=== PATIENT | female | born 1960 | race Caucasian/White ===

== ENCOUNTER → 2018-03-14 15:51 | Outpatient (CLI) | payer OTHER, SELFPAY ==
--- NOTE | 2018-03-14 15:56 | RAD_ITS ---
STUDY: X-RAY - LEFT HAND REASON FOR EXAM: Female, 57 years old. Pain base of the thumb TECHNIQUE: 3 view(s) of the hand. COMPARISON: None. FINDINGS: Normal radiocarpal articulation. Normal distal radioulnar joint. Normal visualized carpal bones. 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 Normal second through fifth carpometacarpal joints. Normal metacarpi. Normal metacarpophalangeal joint of the thumb. Normal interphalangeal joint of the thumb. Normal proximal and distal phalanges of the thumb. Normal metacarpophalangeal joints of the second through fifth fingers. Normal proximal and distal interphalangeal joints of the second through fifth fingers. Normal phalanges of the second through fifth fingers. The soft tissue structures are unremarkable. RAD/Hand Min 3 Views IMPRESSION: Degenerative change base of the thumb. No fracture or dislocation. Electronically Signed: Frank Muir DO at 22:28 EDT , Service support ,
== END ==
PROVIDERS: Family Provider Internal Medicine; PCP Internal Medicine; Visit Provider Nurse Practitioner Gerontology
DX: M79.645 Pain in left finger(s) (principal)
CPT/HCPCS: 73130

== ENCOUNTER 2018-07-07 15:29 | Emergency (ER) | payer OTHER, SELFPAY ==
[2018-07-07 15:29] VITALS: BP 159/85; PULSE 82; RESP 16; TEMP 36.4; O2SAT 100; BMI 28.3
--- NOTE | 2018-07-07 16:11 | EKG12_ITS ---
Test Reason : SYNCOPE Blood Pressure : / mmHG Vent. Rate : 080 BPM Atrial Rate : 080 BPM P-R Int : 176 ms QRS Dur : 086 ms QT Int : 386 ms P-R-T Axes : 047 -13 008 degrees QTc Int : 445 ms Poor data quality, interpretation may be adversely affected Sinus rhythm with Fusion complexes Moderate voltage criteria for LVH, may be normal variant Borderline ECG Confirmed by SANKET LYNNE ([id number]), editor in chief CHAD BEYER ([id number] on 07/11/2018 2:23:58 PM Referred By: DONG Confirmed By:SANKET LYNNE
--- NOTE | 2018-07-07 16:13 | ED.VISSUMM ---
- ER Visit Summary Date of Service: 07/07/18 Chief Complaint: I feel like I am going to pass out History of Present Illness: The patient is a 57 F past medical history of vsn-eqnnncn-aoztgbtid diabetes, hypertension and mitral valve prolapse. Patient states yesterday she had 4 episodes and about 6 episodes a day where she has sudden onset brief episodes that she feels like she is going to pass out. She states only last 5 or 6 seconds. She denies associated symptoms. No palpitations. No fast or slow heartbeats. No irregular heartbeats. No chest pain. No headache. No shortness of breath. No abdominal pain. No melena. No nausea, vomiting, diarrhea or fever. Does not believe she has had episodes like this before. States she has been eating and drinking. Physical Examination: Well-appearing middle-age female. Vital signs are stable and afebrile. Pulse ox 100% on room air no signs of hypoxia. H EENT exam unremarkable. Neck nontender. Lungs clear to auscultation bilaterally. Heart regular rate and rhythm I do not appreciate any murmur. Abdomen soft and nontender. Normal bowel sounds no peritoneal signs. No pulsatile mass. She is moving all 4 extremities. They are neurovascularly intact. Calves are nontender without edema or cords. Neurologically she is awake and alert without focal motor deficits. NIH is 0. Fingertip to nose and heel to londono within normal limits. Normal speech. No facial droop. Test Results: Orthostatic vital signs were negative. Chest x-ray showed normal cardiac silhouette and mediastinum read both by myself the radiologist. EKG is a sinus rhythm with no acute abnormality and unchanged from prior EKG from 2005. CBC normal. Chemistries unremarkable with a normal gap and creatinine. And troponin was normal. Emergency Department Course and Treatment: Patient with near syncope. With a normal exam. Well at 1904. He will be discharged home. Treatment Plan: Follow-up with a primary care physician or return to the ER if worse. Disposition: Discharge Impression: Near syncope of uncertain etiology This note was generated with [employer] dictation software. It may contain incorrect words, spelling, and punctuation that were not noted in review of the chart prior to signing ED Disposition - Plan for ED Patient: Chief Complaint: Syncope Referrals: Jessica Carrington DO [Primary Care Provider] -
[2018-07-07 16:37] VITALS: O2SAT 98
[2018-07-07] MEDS: 0.9% Normal Saline 1,000 ML 999 ML IV (16:41)
[2018-07-07 16:49] LABS: Absolute Lymphocyte Count 1.25 X10^3/ul (0.83-4.51); Absolute Neutrophil Count 6.9 X10^3/uL (2.0-7.7); Basophil# 0.02 X10^3/uL; Basophil% 0.2 % (0-1); Eosinophil# 0.19 X10^3/uL; Eosinophils% 2.1 % (0-5); Hematocrit 39.8 % (37-47); Hemoglobin 12.8 g/dl (12.0-15.0); Lymphocyte # 1.25 X10^3/ul (4.0); Mean Corp Hgb Conc 32.2 g/gl (32-36); Mean Corpuscular Hgb 25.9 pg (27.0-32.0); Mean Corpuscular Volume 80.6 fL (81-99); Mean Platelet Vol. 10.4 fl (6.2-12.0); Monocyte# 0.57 X10^3/uL; Monocyte% 6.4 % (0-10); Neutrophil # 6.86 X10^3/uL (2.7-7.7); Neutrophil % 77.1 % (47-70); Platelet Count 277 K/mm3 (150-450); RBC Distribution Width CV 14.9 % (11.6-14.6); RBC Distribution Width SD 43.3 fl (35.1-43.9); Red Blood Count 4.94 M/mm3 (4.2-5.4); White Blood Count 8.9 K/mm3 (4.4-11.0)
[2018-07-07 16:50] LABS: POSITIVE COUNT NO; POSITIVE DIFFERENTIAL NO; POSITIVE MORPHOLOGY NO
[2018-07-07 17:02] LABS: Anion Gap 10 (5-15); BUN 20 mg/dL (7-18); BUN/Creat Ratio 21.1 RATIO (10-20); Calcium,Total 9.3 mg/dL (8.5-10.1); Chloride 98 mmol/L (98-107); Creatinine, Serum 0.95 mg/dL (0.55-1.02); EST Glomerular Filtration Rate 64 mL/min (>60); Est Glom Filt Rate - Afr Amer 78 mL/min (>60); Estimated Creatinine Clearance 55.74 ml/min; Glucose 228 mg/dL (74-106); Potassium 3.7 mmol/L (3.5-5.1); Sodium Level 134 mmol/L (136-145)
[2018-07-07 18:03] VITALS: PULSE 86; RESP 17; O2SAT 98
[2018-07-07 18:22] VITALS: BP 144/74; BP 154/73; BP 162/83; PULSE 83; PULSE 85; PULSE 91
--- NOTE | 2018-07-07 19:07 | ED.DEP ---
ED Disposition - Plan for ED Patient: Disposition: Home or Assisted Living Chief Complaint: Syncope Instructions: ED Near Syncope Unkn Referrals: Jessica Carrington DO [Primary Care Provider] - As soon as possible Additional Instructions: All your tests were unremarkable today. Follow-up your primary care physician for further evaluation.
[2018-07-07 19:30] VITALS: BP 172/73; PULSE 88; RESP 18
== END 2018-07-07 19:31 | disposition home or self-care (01) ==
PROVIDERS: Emergency Provider Emergency Medicine; Family Provider Internal Medicine; PCP Internal Medicine
DX: R55 Syncope and collapse (principal); E11.9 Type 2 diabetes mellitus without complications; I34.1 Nonrheumatic mitral (valve) prolapse; I10 Essential (primary) hypertension; Z79.84 Long term (current) use of oral hypoglycemic drugs; Z79.899 Other long term (current) drug therapy
CPT/HCPCS: 71045; 80048; 84484; 85025; 93005; 96360; 99285; J7030; A4216

== ENCOUNTER → 2019-01-01 16:53 | Outpatient (CLI) | payer OTHER, SELFPAY ==
[2019-01-01 17:56] LABS: Hemoglobin A1c 9.4 % (4.2-6.3)
[2019-01-01 18:21] LABS: AST(SGOT) 18 U/L (15-37); Alanine Aminotransfer ALT/SGPT 26 U/L (13-56); Albumin, Serum 3.5 g/dL (3.2-5.0); Alkaline Phosphatase 111 U/L (45-117); Anion Gap 11 (5-15); BUN 24 mg/dL (7-18); BUN/Creat Ratio 21.1 RATIO (10-20); Calcium,Total 8.9 mg/dL (8.5-10.1); Chloride 94 mmol/L (98-107); Creatinine, Serum 1.14 mg/dL (0.55-1.02); EST Glomerular Filtration Rate 52 mL/min (>60); Est Glom Filt Rate - Afr Amer 63 mL/min (>60); Globulin 3.6 g/dL (2.2-4.2); Glucose 258 mg/dL (74-106); Iron 44 ug/dL (50-170); Iron Binding Capacity,Total 372 ug/dL (250-450); Magnesium 1.4 mg/dL (1.6-2.6); PERCENT IRON SATURATION 11.8 % (15.0-55.0); Potassium 3.4 mmol/L (3.5-5.1); Protein, Total 7.1 g/dL (6.4-8.2); Sodium Level 131 mmol/L (136-145)
== END ==
PROVIDERS: Family Provider Internal Medicine; PCP Internal Medicine; Referring Provider Internal Medicine; Visit Provider Internal Medicine
DX: E11.9 Type 2 diabetes mellitus without complications (principal); D64.9 Anemia, unspecified; R25.2 Cramp and spasm; D53.1 Other megaloblastic anemias, not elsewhere classified; E55.9 Vitamin D deficiency, unspecified
CPT/HCPCS: 36415; 80053; 83036; 83540; 83550; 83735; 84443

== ENCOUNTER 2019-01-23 15:36 | Emergency (ER) | payer OTHER, SELFPAY ==
[2019-01-23 15:38] VITALS: BP 166/100; PULSE 95; RESP 16; TEMP 36.1; O2SAT 99; BMI 29.0
--- NOTE | 2019-01-23 15:55 | ED.VISSUMM ---
- ER Visit Summary Date of Service: 01/23/19 Chief Complaint: Diarrhea and I feel dehydrated History of Present Illness: The patient is a 58 F the last 3 or 4 weeks has had intermittent episodes of diarrhea which have tested her stool and she states that she does not have C. difficile. She is been admitted to [facility] in [place] x2 the last being about 10 days ago. She is receiving IV fluids and has had electrolyte abnormalities. States she is having similar symptoms the last several days. Denies any fever. Mild chills. No melena. She was recently about 3-4 weeks ago on antibiotics for UTI. She drinks city water. Physical Examination: Middle-aged female no acute distress. Vital signs are stable. She is afebrile. She does not look septic or toxic. HEENT exam mild dry mucous memories. Neck nontender no lymphadenopathy. Lungs clear to auscultation bilaterally. Heart regular rate and rhythm no murmur. Abdomen soft nontender. Normal bowel sounds no peritoneal signs. Extremities moving all 4. Calves nontender without edema or cords. Neurologically she is awake alert with no focal motor deficits. Skin unremarkable. Test Results: CBC unremarkable hemoglobin mildly anemic at 11.6. Previously 12 electrolytes unremarkable potassium 3.6 magnesium 1.6 patient will be specifically check her magnesium. BUN 13 creatinine 0.9 normal gap. Emergency Department Course and Treatment: Patient treated with IV fluids times 1 L. On repeat exam patient doing well with 1827. She is feeling better after liter normal saline. She and I went over her labs with her. She meets no criteria to warrant admission. She is comfortable being discharged home. Treatment Plan: She will follow-up with her primary care physician. She probably needs referral either to a GI specialist for her diarrhea and/or a local general surgeon for possible colonoscopy. Disposition: discharge Impression: Acute diarrhea This note was generated with [employer] dictation software. It may contain incorrect words, spelling, and punctuation that were not noted in review of the chart prior to signing ED Disposition - Plan for ED Patient: Referrals: Jessica Carrington DO [Primary Care Provider] -
--- NOTE | 2019-01-23 15:58 | ED.DCSUM_ITS ---
- ER Visit Summary Date of Service: 01/23/19 Chief Complaint: Diarrhea and I feel dehydrated History of Present Illness: The patient is a 58 F the last 3 or 4 weeks has had intermittent episodes of diarrhea which have tested her stool and she states that she does not have C. difficile. She is been admitted to [facility] in [place] x2 the last being about 10 days ago. She is receiving IV fluids and has had electrolyte abnormalities. States she is having similar symptoms the last several days. Denies any fever. Mild chills. No melena. She was recently about 3-4 weeks ago on antibiotics for UTI. She drinks city water. Physical Examination: Middle-aged female no acute distress. Vital signs are stable. She is afebrile. She does not look septic or toxic. HEENT exam mild dry mucous memories. Neck nontender no lymphadenopathy. Lungs clear to auscultation bilaterally. Heart regular rate and rhythm no murmur. Abdomen soft nontender. Normal bowel sounds no peritoneal signs. Extremities moving all 4. Calves nontender without edema or cords. Neurologically she is awake alert with no focal motor deficits. Skin unremarkable. Test Results: CBC unremarkable hemoglobin mildly anemic at 11.6. Previously 12 electrolytes unremarkable potassium 3.6 magnesium 1.6 patient will be specifically check her magnesium. BUN 13 creatinine 0.9 normal gap. Emergency Department Course and Treatment: Patient treated with IV fluids times 1 L. On repeat exam patient doing well with 1827. She is feeling better after liter normal saline. She and I went over her labs with her. She meets no criteria to warrant admission. She is comfortable being discharged home. Treatment Plan: She will follow-up with her primary care physician. She probably needs referral either to a GI specialist for her diarrhea and/or a local general surgeon for possible colonoscopy. Disposition: discharge Impression: Acute diarrhea This note was generated with [employer] dictation software. It may contain incorrect words, spelling, and punctuation that were not noted in review of the chart prior to signing ED Disposition - Plan for ED Patient: Referrals: Jessica Carrington DO [Primary Care Provider] -
[2019-01-23] MEDS: 0.9% Normal Saline 1,000 ML 1000 ML IV (16:04)
[2019-01-23 16:20] LABS: Absolute Lymphocyte Count 1.37 X10^3/ul (0.83-4.51); Absolute Neutrophil Count 2.8 X10^3/uL (2.0-7.7); Basophil# 0.01 X10^3/uL; Basophil% 0.2 % (0-1); Eosinophil# 0.07 X10^3/uL; Eosinophils% 1.5 % (0-5); Hematocrit 37.1 % (37-47); Hemoglobin 11.6 g/dl (12.0-15.0); Lymphocyte # 1.37 X10^3/ul (4.0); Lymphocyte % 28.9 % (19-41); Mean Corp Hgb Conc 31.3 g/gl (32-36); Mean Corpuscular Hgb 25.7 pg (27.0-32.0); Mean Corpuscular Volume 82.1 fL (81-99); Mean Platelet Vol. 9.1 fl (6.2-12.0); Monocyte# 0.45 X10^3/uL; Monocyte% 9.5 % (0-10); Neutrophil # 2.84 X10^3/uL (2.7-7.7); Neutrophil % 59.9 % (47-70); Platelet Count 263 K/mm3 (150-450); RBC Distribution Width CV 14.7 % (11.6-14.6); RBC Distribution Width SD 43.9 fl (35.1-43.9); Red Blood Count 4.52 M/mm3 (4.2-5.4); White Blood Count 4.7 K/mm3 (4.4-11.0)
[2019-01-23 16:21] LABS: POSITIVE COUNT NO; POSITIVE DIFFERENTIAL NO; POSITIVE MORPHOLOGY NO
[2019-01-23 16:29] LABS: Anion Gap 6 (5-15); BUN 13 mg/dL (7-18); BUN/Creat Ratio 14.5 RATIO (10-20); Chloride 99 mmol/L (98-107); EST Glomerular Filtration Rate 68 mL/min (>60); Est Glom Filt Rate - Afr Amer 83 mL/min (>60); Estimated Creatinine Clearance 58.12 ml/min; Glucose 157 mg/dL (74-106); Magnesium 1.6 mg/dL (1.6-2.6); Potassium 3.6 mmol/L (3.5-5.1); Sodium Level 134 mmol/L (136-145)
--- NOTE | 2019-01-23 18:31 | ED.DEP ---
ED Disposition - Plan for ED Patient: Disposition: Home or Assisted Living Referrals: Jessica Carrington, [Primary Care Provider] - As soon as possible Additional Instructions: Plenty of fluids and rest. Imodium for your diarrhea. Next Follow-up your primary care physician you need referral either to a local GI doctor or local surgeon for further evaluation of your diarrhea and/or possible colonoscopy.
== END 2019-01-23 18:39 | disposition home or self-care (01) ==
PROVIDERS: Emergency Provider Emergency Medicine; Family Provider Internal Medicine; PCP Internal Medicine
DX: R19.7 Diarrhea, unspecified (principal); E86.0 Dehydration; I10 Essential (primary) hypertension; E11.9 Type 2 diabetes mellitus without complications; Z79.84 Long term (current) use of oral hypoglycemic drugs; Z79.899 Other long term (current) drug therapy
CPT/HCPCS: 80048; 83735; 85025; 96360; 96361; 99283; J7030; A4216

== ENCOUNTER → 2019-05-16 | Outpatient (CLI) | payer OTHER, SELFPAY ==
[2019-05-16 16:01] VITALS: BMI 28.3
--- NOTE | 2019-05-16 16:12 | RAD_ITS ---
STUDY: X-RAY CHEST REASON FOR EXAM: Female, 58 years old. Cough TECHNIQUE: Frontal and lateral views of the chest COMPARISON: 07/07/2018 FINDINGS: The lungs are clear. There are no pleural effusions. There is no pneumothorax. The heart is normal in size. The visualized osseous structures are within normal limits. RAD/Chest PA and Lateral IMPRESSION: No acute thoracic pathology. Electronically Signed: Juan Ruth, at 16:22 EDT Tel , Service support ,
== END | disposition home or self-care (01) ==
LOC: MTRAD 16:11
PROVIDERS: Family Provider Internal Medicine; PCP Internal Medicine; Referring Provider Physician Assistant; Visit Provider Physician Assistant
DX: R05 Cough (principal)
CPT/HCPCS: 71046

== ENCOUNTER 2019-08-29 17:44 | Emergency (ER) | payer OTHER, SELFPAY ==
[2019-08-29 17:44] VITALS: BMI 28.3
[2019-08-29 17:45] VITALS: BP 152/84; PULSE 86; RESP 15; TEMP 36.4; O2SAT 98; BMI 27.4
--- NOTE | 2019-08-29 19:37 | ED.RN ---
PATIENT LEFT WITHOUT BEING SEEN
== END 2019-08-29 19:37 | disposition left against medical advice (07) ==
LOC: ED 19:35
PROVIDERS: Emergency Provider Emergency Medicine; Family Provider Internal Medicine; PCP Internal Medicine
DX: Z53.21 Procedure and treatment not carried out due to patient leaving prior to being seen by health care provider (principal)

== ENCOUNTER → 2020-10-20 | Outpatient (CLI) | payer OTHER, SELFPAY ==
[2020-10-20 15:32] LABS: Absolute Lymphocyte Count 1.61 X10^3/uL (0.83-4.51); Absolute Neutrophil Count 3.8 X10^3/uL (2.0-7.7); Basophil# 0.02 X10^3/uL; Basophil% 0.3 % (0-1); Eosinophil# 0.09 X10^3/uL; Eosinophils% 1.5 % (0-5); Hematocrit 39.6 % (37-47); Hemoglobin 12.1 g/dL (12.0-15.0); Lymphocyte # 1.61 X10^3/ul (4.0); Lymphocyte % 26.3 % (19-41); Mean Corp Hgb Conc 30.6 g/dL (32-36); Mean Corpuscular Volume 78.6 fL (81-99); Mean Platelet Vol. 10.4 fl (6.2-12.0); Monocyte# 0.59 X10^3/uL; Monocyte% 9.6 % (0-10); NRBC Flagged by Analyzer 0 % (0-5); Neutrophil # 3.79 X10^3/uL (2.7-7.7); Neutrophil % 61.8 % (47-70); Platelet Count 329 K/mm3 (150-450); RBC Distribution Width CV 14.7 % (11.6-14.6); RBC Distribution Width SD 41.7 fl (35.1-43.9); Red Blood Count 5.04 M/mm3 (4.2-5.4); White Blood Count 6.1 K/mm3 (4.4-11.0)
[2020-10-20 15:59] LABS: Albumin, Serum 3.6 g/dL (3.2-5.0); BUN 16 mg/dL (7-18); BUN/Creat Ratio 16.3 RATIO (10-20); Calcium,Total 9.4 mg/dL (8.5-10.1); Chloride 96 mmol/L (98-107); Creatinine, Serum 0.98 mg/dL (0.55-1.02); EST Glomerular Filtration Rate 61 mL/min (>60); Est Glom Filt Rate - Afr Amer 74 mL/min (>60); Glucose 269 mg/dL (74-106); Magnesium 1.7 mg/dL (1.6-2.6); Phosphorus 3.3 mg/dL (2.5-4.9); Potassium 3.9 mmol/L (3.5-5.1); Sodium Level 133 mmol/L (136-145)
== END | disposition home or self-care (01) ==
LOC: LABSPEC 15:14
PROVIDERS: PCP Internal Medicine; Referring Provider Nurse Practitioner; Visit Provider Nurse Practitioner
DX: R19.7 Diarrhea, unspecified (principal)
CPT/HCPCS: 80069; 83735; 85025

== ENCOUNTER → 2020-12-26 12:28 | Outpatient (CLI) | payer OTHER, SELFPAY ==
--- NOTE | 2020-12-26 12:31 | RAD_ITS ---
STUDY: X-RAY - UNILATERAL RIBS ( RIGHT ) WITH CHEST REASON FOR EXAM: Female, 60 years old. Right anterior rib pain, leaned over a seat in the fall, still having pain under right breast TECHNIQUE - RIBS: 3 view(s) of the ribs. TECHNIQUE - CHEST: Single PA view of the chest. COMPARISON: Comparison is made with prior chest radiograph dated 05/16/2008. FINDINGS - RIBS: Normal visualized ribs without a demonstrated fracture. FINDINGS - CHEST: The lungs are clear and expanded. Scattered calcified granulomas. There is no demonstrated pleural abnormality. Normal size heart. Normal mediastinum and aron. Normal visualized pulmonary arteries. Normal visualized aortic arch and descending thoracic aorta. There are diffuse degenerative changes of the visualized thoracic spine. Normal visualized ribs, clavicles, and shoulders. Status post cholecystectomy. RAD/Ribs Uni Min 3V w/PA Chest IMPRESSION: RIBS: Normal x-ray examination of the ribs. CHEST: Normal x-ray examination of the chest. Electronically Signed: Robson Holland MD at 15:03 EST , Service support ,
== END ==
PROVIDERS: PCP Internal Medicine; Referring Provider Nurse Practitioner; Visit Provider Nurse Practitioner
DX: R07.81 Pleurodynia (principal)
CPT/HCPCS: 71101

== ENCOUNTER → 2021-06-20 | Outpatient (CLI) | payer OTHER, SELFPAY ==
[2021-06-20 12:55] LABS: Mucous, Urine 0 SEEN /hpf (<or=2+); Red Blood Cells-Urine 0 SEEN /hpf (0-5)
[2021-06-20 13:01] LABS: Color, Urine Yellow (Yellow); Glucose, Dipstick 1000 mg/dl (Normal); Ketone-Dipstick Negative (Negative); Leukocyte Esterase-Dipstick 500 /ul (Negative); Nitrite-Dipstick Positive (Negative); Occult Blood-Urine 50 /ul (Negative); Protein-Dipstick 30 mg/dl (Negative); Specific Gravity, Urine 1.015 (1.002-1.030); Urine Clarity Clear (Clear); Urine Urobilinogen 4 mg/dl (Normal)
[2021-06-20 13:05] LABS: Urine Bilirubin Dipstick 3 mg/dL (Negative)
[2021-06-20 13:08] LABS: Bacteria 1+ /hpf (None Seen); Squamous Epithelial Cells - UA 0-5 SEEN /hpf (5-10); White Blood Cells >100 SEEN /hpf (0-5)
== END | disposition home or self-care (01) ==
PROVIDERS: PCP Internal Medicine; Referring Provider Nurse Practitioner Family; Visit Provider Nurse Practitioner Family
DX: N39.0 Urinary tract infection, site not specified (principal)
CPT/HCPCS: 81001; 87077; 87086; 87088; 87186

== ENCOUNTER → 2022-07-20 | Outpatient (CLI) | payer OTHER, SELFPAY | END | disposition home or self-care (01) | PROVIDERS: PCP Internal Medicine; Referring Provider Internal Medicine; Visit Provider Internal Medicine | DX: R00.0 Tachycardia, unspecified (principal) | CPT/HCPCS: 93225; 93226 ==

== ENCOUNTER → 2023-02-21 | Outpatient (CLI) | payer OTHER, SELFPAY ==
[2023-02-21 15:35] LABS: Mucous, Urine 0 SEEN /hpf (<or=2+)
[2023-02-21 16:01] LABS: Absolute Neutrophil Count 5.4 X10^3/uL (2.0-7.7); Basophil# 0.02 X10^3/uL; Basophil% 0.3 % (0-1); Eosinophil# 0.19 X10^3/uL; Eosinophils% 2.4 % (0-5); Hematocrit 39.9 % (37-47); Hemoglobin 12.8 g/dL (12.0-15.0); Lymphocyte % 21.6 % (19-41); Mean Corp Hgb Conc 32.1 g/dL (32-36); Mean Corpuscular Hgb 25.1 pg (27.0-32.0); Mean Corpuscular Volume 78.4 fL (81-99); Mean Platelet Vol. 9.9 fl (6.2-12.0); Monocyte% 7.6 % (0-10); NRBC Flagged by Analyzer 0 % (0-5); Neutrophil # 5.35 X10^3/uL (2.7-7.7); Neutrophil % 67.8 % (47-70); Platelet Count 387 K/mm3 (150-450); RBC Distribution Width CV 14.3 % (11.6-14.6); RBC Distribution Width SD 40.2 fl (35.1-43.9); Red Blood Count 5.09 M/mm3 (4.2-5.4); White Blood Count 7.9 K/mm3 (4.4-11.0)
[2023-02-21 16:02] LABS: Color, Urine Yellow (Yellow); Glucose, Dipstick 1000 mg/dl (Normal); Ketone-Dipstick Negative (Negative); Leukocyte Esterase-Dipstick 500 /ul (Negative); Nitrite-Dipstick Negative (Negative); Occult Blood-Urine 25 /ul (Negative); Protein-Dipstick 15 mg/dl (Negative); Urine Bilirubin Dipstick Negative (Negative); Urine Clarity Cloudy (Clear); Urine Urobilinogen Normal (Normal)
[2023-02-21 16:22] LABS: Microalbumin,Random Urine 74.6 mg/L (NO RANGE EST.); Microalbumin:Creatinine Ratio 222.7 mg/g CRE (<30 mg/g CRE)
[2023-02-21 17:20] LABS: White Blood Cells >100 SEEN /hpf (0-5)
[2023-02-21 17:21] LABS: Amorphous Sediment 1+ URATE; Bacteria 1+ /hpf (None Seen); Red Blood Cells-Urine 0-5 SEEN /hpf (0-5); Squamous Epithelial Cells - UA 0-5 SEEN /hpf (5-10)
[2023-02-21 18:11] LABS: ALB/GLOB Ratio 0.9 RATIO (0.9-2.4); AST(SGOT) 18 U/L (15-37); Alanine Aminotransfer ALT/SGPT 33 U/L (13-56); Albumin, Serum 3.5 g/dL (3.2-5.0); Alkaline Phosphatase 128 U/L (45-117); Anion Gap 7 (5-15); BUN 17 mg/dL (7-18); Calcium,Total 9.2 mg/dL (8.5-10.1); Chloride 92 mmol/L (98-107); Cholesterol 165 mg/dL (200); Creatinine, Serum 1.06 mg/dL (0.55-1.02); EST Glomerular Filtration Rate 56 mL/min (>60); Est Glom Filt Rate - Afr Amer 67 mL/min (>60); Globulin 3.9 g/dL (2.2-4.2); Glucose 291 mg/dL (74-106); High Density Lipoprotein 41 mg/dL; Potassium 3.5 mmol/L (3.5-5.1); Protein, Total 7.4 g/dL (6.4-8.2); Sodium Level 127 mmol/L (136-145); Triglycerides 407 mg/dL
== END | disposition home or self-care (01) ==
LOC: LAB 15:27
PROVIDERS: PCP Internal Medicine; Visit Provider Internal Medicine
DX: E11.9 Type 2 diabetes mellitus without complications (principal); E78.5 Hyperlipidemia, unspecified
CPT/HCPCS: 36415; 80053; 80061; 81001; 82043; 82570; 85025; 87077; 87086; 87088; 87186

== ENCOUNTER → 2023-05-16 | Outpatient (CLI) | payer OTHER, SELFPAY ==
[2023-05-16 15:58] LABS: Mucous, Urine 0 SEEN /hpf (<or=2+)
[2023-05-16 16:11] LABS: Glucose, Dipstick 1000 mg/dl (Normal); Ketone-Dipstick 5 mg/dl (Negative); Leukocyte Esterase-Dipstick 500 /ul (Negative); Nitrite-Dipstick Negative (Negative); Occult Blood-Urine 50 /ul (Negative); Protein-Dipstick 30 mg/dl (Negative); Urine Bilirubin Dipstick Negative (Negative); Urine Urobilinogen Normal (Normal)
[2023-05-16 16:14] LABS: Color, Urine Yellow (Yellow); Urine Clarity Sl Cldy (Clear)
[2023-05-16 16:44] LABS: Red Blood Cells-Urine 5-10 SEEN /hpf (0-5); Squamous Epithelial Cells - UA 5-10 SEEN /hpf (5-10); White Blood Cells 50-100 SEEN /hpf (0-5)
[2023-05-16 16:45] LABS: Bacteria RARE /hpf (None Seen)
== END | disposition home or self-care (01) ==
LOC: LABSPEC 14:50
PROVIDERS: PCP Internal Medicine; Referring Provider Physician Assistant Surgical; Visit Provider Physician Assistant Surgical
DX: N39.0 Urinary tract infection, site not specified (principal)
CPT/HCPCS: 81001; 87077; 87086; 87088; 87186

== ENCOUNTER 2023-06-27 12:13 | Inpatient (IN) | payer OTHER, SELFPAY ==
[2023-06-27 12:15] VITALS: BP 131/71; PULSE 89; RESP 18; TEMP 36.6; O2SAT 100
[2023-06-27 12:28] VITALS: BMI 26.4
--- NOTE | 2023-06-27 13:51 | EKG12_ITS ---
Test Reason : GENERAL Blood Pressure : / mmHG Vent. Rate : 075 BPM Atrial Rate : 075 BPM P-R Int : 176 ms QRS Dur : 086 ms QT Int : 382 ms P-R-T Axes : 050 -29 021 degrees QTc Int : 426 ms Normal sinus rhythm Minimal voltage criteria for LVH, may be normal variant ( R in aVL ) Borderline ECG Confirmed by JUDI GOMEZ ([id number]), marketing editor VLADIMIR TOBAR ([id number]) on 07/08/2023 2:08:06 PM Referred By: Confirmed By:JUDI GOMEZ
[2023-06-27] MEDS: Morphine 4 MG/ML Syringe IV (14:08)
[2023-06-27] MEDS: Ondansetron 4 MG/2 ML Vial IV (14:09)
[2023-06-27 14:18] LABS: Absolute Lymphocyte Count 0.77 X10^3/uL (0.83-4.51); Absolute Neutrophil Count 10.5 X10^3/uL (2.0-7.7); Basophil# 0.01 X10^3/uL; Basophil% 0.1 % (0-1); Hematocrit 43.7 % (37-47); Hemoglobin 13.8 g/dL (12.0-15.0); Lymphocyte # 0.77 X10^3/ul (0.83-4.51); Lymphocyte % 6.4 % (19-41); Mean Corp Hgb Conc 31.6 g/dL (32-36); Mean Corpuscular Hgb 24.7 pg (27.0-32.0); Mean Corpuscular Volume 78.3 fL (81-99); Mean Platelet Vol. 10.5 fl (6.2-12.0); Monocyte# 0.68 X10^3/uL; Monocyte% 5.6 % (0-10); NRBC Flagged by Analyzer 0 % (0-5); Neutrophil # 10.53 X10^3/uL (2.7-7.7); Neutrophil % 87.5 % (47-70); Platelet Count 439 K/mm3 (150-450); RBC Distribution Width CV 14.5 % (11.6-14.6); RBC Distribution Width SD 40.9 fl (35.1-43.9); Red Blood Count 5.58 M/mm3 (4.2-5.4)
--- NOTE | 2023-06-27 14:20 | RAD_ITS ---
STUDY: X-RAY CHEST REASON FOR EXAM: Female, 62 years old. Shoulder pain TECHNIQUE: PA and lateral views of the chest. COMPARISON: Comparison is made with prior study dated November 25, 2021. FINDINGS: EKG electrodes are seen. The lungs are clear and expanded. There is no demonstrated pleural abnormality. Normal size heart. Normal mediastinum and aron. Normal visualized pulmonary arteries. Normal visualized aortic arch and descending thoracic aorta. There are diffuse degenerative changes of the visualized thoracic spine. Normal visualized ribs, clavicles, and shoulders. Surgical clips are seen in the right upper quadrant. RAD/Chest PA and Lateral IMPRESSION: No acute abnormality is seen. Electronically Signed: Robson Holland MD at 14:56 EDT ,
--- NOTE | 2023-06-27 14:30 | EX.ED.UPPERE ---
HPI History of Present Illness HPI Narrative: Patient presents with left shoulder and arm pain that has been getting worse over the past week. Patient states it came on gradually. Patient states it has been constant. Patient states that sharp and stabbing. Patient states it is worse when she gets up and better when she lays flat. Patient states the pain radiates down her arm and has some tingling into her fingers. Patient denies any weakness. Patient does admit to some shortness of breath. Patient states she also has pain under her left scapula. Patient denies any trauma or injury. Patient denies any nausea or vomiting. Patient denies any sweats. Chief Complaint: Upper Extremity Injury Informant: patient Onset/Context/Timing Onset: Weeks (1) Context: Gradual Onset Timing: Continuous Quality of Pain: Sharp and Stabbing Location: Left shoulder and left upper arm Worsened by: Getting up from laying position Relieved by: Laying flat Associated Symptoms Associated Symptoms: Positive for Parasthesia; Negative for Weakness or Loss of Funtion [facility] History (Updated 06/27/23 @ 15:[address] To Martin, ) Anemia Arthritis BPPV (benign paroxysmal positional vertigo) Carpal tunnel syndrome Diabetes Diarrhea Fatigue Hypertension Right rib fracture URI (upper respiratory infection) Home Medications venlafaxine 37.5 mg tablet 37.5 mg PO DAILY DEPRESSION 07/07/18 [History Last Taken 06/27/23] amlodipine 5 mg tablet 5 mg PO DAILY BLOOD PRESSURE 06/27/23 [History Last Taken 06/27/23] cyclobenzaprine 10 mg tablet 10 mg PO TID MUSCLE SPASMS 06/27/23 [History Last Taken 06/27/23] dapagliflozin propanediol 10 mg tablet (Farxiga) 10 mg PO DAILY DIABETES 06/27/23 [History Last Taken 06/27/23] fenofibric acid (choline) 135 mg capsule,delayed release 135 mg PO DAILY CHOLESTEROL 06/27/23 [History Last Taken 06/27/23] icosapent ethyl 1 gram capsule (Vascepa) 2 g PO BID HEART 06/27/23 [History Last Taken 06/27/23] metformin 500 mg tablet,extended release 24 hr 500 mg PO BID DIABETES 06/27/23 [History Last Taken 06/27/23] metoprolol tartrate 100 mg-hydrochlorothiazide 25 mg tablet 1 tab PO BID BLOOD PRESSURE 06/27/23 [History Last Taken 06/27/23] montelukast 10 mg tablet 10 mg PO DAILY ALLERGIES 06/27/23 [History Last Taken 06/27/23] Allergy/AdvReac Type Severity Reaction Status Date / Time ciprofloxacin [From Cipro] Allergy Rash Verified 06/27/23 12:16 erythromycin base Allergy Rash Verified 06/27/23 12:16 [Erythromycin Base] Penicillins [PCN] Allergy Rash Verified 06/27/23 12:16 Sulfa (Sulfonamide Allergy Rash Verified 06/27/23 12:16 Antibiotics) Surgical History (Updated 06/27/23 @ 14:[address] To Martin DO) History of History of carpal tunnel surgery of left wrist History of cholecystectomy History of hysterectomy Social History Smoking Status: Never smoker alcohol intake: never ROS ROS ED Constitutional Constitutional ED: Denies chills or fever(s) Eyes Eyes: Denies blurry vision or change in vision ENT ENT ED: Denies rhinorrhea or sore throat Cardiovascular Cardiovascular: Denies chest pain or palpitations Respiratory/Chest Respiratory/Chest: Reports dyspnea; Denies cough Gastrointestinal Gastrointestinal: Denies nausea or vomiting Genitourinary Genitourinary ED: Denies dysuria or hematuria Musculoskeletal Musculoskeletal: Reports back pain; Denies neck pain Integumentary Denies abscess or rash Neurologic Neurologic: Denies headache(s) or weakness Allergic/Immunologic Allergic/Immunologic ED: Denies mouth swelling or urticaria EXAM Physical Exam Const Vital Signs: 06/27/23 12:15 Temperature 97.9 F Temperature Source Temporal Pulse Rate 89 Respiratory Rate 18 Blood Pressure 131/71 H Blood Pressure Mean 91 Pulse Ox 100 Oxygen Delivery Method Room Air Positive well nourished and well developed General Appearance ED: well developed HEENT Reports moist mucous membranes Neck supple and no JVD Resp normal respiratory effort and clear to auscultation bilaterally Cardio regular rate, regular rhythm and no murmurs GI normal to inspection, nondistended, normoactive bowel sounds and non-tender Palpation: soft Extremity normal to inspection Extremity Narrative: There is tenderness over the posterior and lateral aspects of the left shoulder. There is no edema or ecchymosis. There is no obvious deformity noted. Range of motion was slightly limited in all motions of the left shoulder secondary to pain. Strength is 5/5 bilaterally in the upper extremities. There are no sensory deficits noted. Radial pulses are equal bilaterally. General Extremety ED: Yes tenderness; Negative for edema General Extremity: Negative for edema Neuro oriented x3, CN's II-XII intact bilaterally and no sensory deficits noted Sensorium / Orientation: alert Motor Exam: strength 5/5 throughout Psych mental status grossly normal Skin no rashes or lesions noted MDM MDM MDM Narrative Medical decision making narrative: Differential diagnosis includes musculoskeletal shoulder pain, cardiac dysrhythmia, cardiac ischemia, pneumonia, pneumothorax, and anxiety. EKG will be obtained to assess for cardiac dysrhythmia and cardiac ischemia. Chest x-ray will be obtained to assess for pneumonia and pneumothorax. CBC will be obtained to assess for leukocytosis and anemia. Basic metabolic profile will be obtained to assess for electrolyte abnormality and renal function. High-sensitivity troponin will be obtained to assess for cardiac ischemia. Lab Data Attestation: I reviewed the patient's lab results. Lab results narrative: CBC was reviewed. There is a slight leukocytosis of 12.0. The remainder was within normal limits. Basic metabolic profile was reviewed. Sodium was 125 and chloride was 85. CO2 was 19 and anion gap was 21. BUN was 66 and creatinine was 1.71. These were increased from previous results. Glucose was elevated at 747. High-sensitivity troponin was reviewed and was less than 3. Labs: Laboratory Results - last 24 hr 06/27/23 14:07 WBC 12.0 H RBC 5.58 H Hgb 13.8 Hct 43.7 MCV 78.3 L MCH 24.7 L MCHC 31.6 L RDW Std Deviation 40.9 RDW Coeff of Zandra 14.5 Plt Count 439 MPV 10.5 Immature Gran % (Auto) 0.400 Neut % (Auto) 87.5 H Lymph % (Auto) 6.4 L [place] % (Auto) 5.6 Eos % (Auto) 0.0 Baso % (Auto) 0.1 Absolute Neuts (auto) 10.5 H Absolute Lymphs (auto) 0.77 L Nucleated RBC % 0 Radiography Chest X-Ray - ED: 2 View, Read by ED Physician, Read by Radiologist and No Acute Disease Diagnostic Testing: PA and lateral chest x-ray was obtained. There are 2 views. On my independent interpretation, lung diego are clear. There is normal cardiac silhouette. Bony thorax is normal. There is no acute process noted. Radiologist also interpreted the x-ray and agrees. EKG Initial EKG: Attestation: I personally reviewed and interpreted this EKG as follows: Interpretation: Sinus Rhythm (75) and No Acute Injury Pattern Comments: EKG was obtained. On my independent interpretation, it showed a normal sinus rhythm with a rate of 75. NC interval, QRS interval, and QTc intervals were all normal. There is borderline left axis deviation at -29. There are no acute ST or T wave changes. Prior EKG tracings: available for review Prior: Unchanged (07/07/2018) Management Discussion w/another healthcare provider: Hospitalist Treatment and Re-Evaluation Narrative: Patient was given morphine and Zofran initially. Patient was given IV fluids. Because of the elevated glucose and elevated anion gap, serum acetone was added on to assess for ketoacidosis. Patient was started on insulin drip. Urinalysis was ordered to assess for urine ketones and glucosuria. Patient was advised of the need for admission to the hospital. Patient is agreeable with this. I will discuss case with the hospitalist for admission. He will admit the patient to PCU. Discharge Plan Dx/Rx/DC Orders Clinical Impression: Acute kidney injury, Diabetic ketoacidosis, Left shoulder pain Disposition Disposition: [facility]
[2023-06-27 14:45] LABS: Anion Gap 21 (5-15); BUN 66 mg/dL (7-18); BUN/Creat Ratio 38.6 RATIO (10-20); Calcium,Total 9.5 mg/dL (8.5-10.1); Chloride 85 mmol/L (98-107); Creatinine, Serum 1.71 mg/dL (0.55-1.02); EST Glomerular Filtration Rate 32 mL/min (>60); Est Glom Filt Rate - Afr Amer 39 mL/min (>60); Estimated Creatinine Clearance 29.08 ml/min; Glucose 747 mg/dL (74-106); Potassium 4.6 mmol/L (3.5-5.1); Sodium Level 125 mmol/L (136-145); Troponin-I HS < 3 pg/mL (3.0-54.0)
[2023-06-27] MEDS: 0.9% Normal Saline 1,000 ML 1000 ML IV ×2 (15:21→16:28)
[2023-06-27 15:30] VITALS: BP 155/74; PULSE 75; RESP 18; O2SAT 98
[2023-06-27 15:36] LABS: Mucous, Urine 0 SEEN /hpf (<or=2+)
[2023-06-27 16:07] LABS: Color, Urine Yellow (Yellow); Glucose, Dipstick 1000 mg/dl (Normal); Leukocyte Esterase-Dipstick 500 /ul (Negative); Nitrite-Dipstick Negative (Negative); Occult Blood-Urine 10 /ul (Negative); Protein-Dipstick Negative (Negative); Specific Gravity, Urine 1.015 (1.002-1.030); Urine Bilirubin Dipstick Negative (Negative); Urine Clarity Sl. Cloudy (Clear); Urine Urobilinogen Normal (Normal)
[2023-06-27 16:27] LABS: Ketone-Dipstick 150 mg/dl (Negative)
[2023-06-27 16:29] VITALS: BP 144/69; PULSE 82; RESP 16; TEMP 36.6; O2SAT 99
[2023-06-27 16:47] LABS: Bacteria RARE /hpf (None Seen); Red Blood Cells-Urine 0-5 SEEN /hpf (0-5); Squamous Epithelial Cells - UA 0-5 SEEN /hpf (5-10); White Blood Cells 5-10 SEEN /hpf (0-5)
[2023-06-27 16:48] LABS: Amorphous Sediment 1+ URATE; Yeast-Urine 3+ /hpf (None Seen)
[2023-06-27 16:52] LABS: Bedside Glucose > 500 mg/dL (74-106)
--- NOTE | 2023-06-27 17:08 | PCM.HP.STD ---
HPI - General General Date of Admission: 06/27/23 HPI Narrative DARNELL WONG, is a 62 F who presents to the hospital with left shoulder pain. This had been going on for a while and she was seen at an outside hospital for this week or so ago. At that point she was started on prednisones despite being a diabetic and now presents with a blood sugar of 740. She feels fine otherwise and presented again because of her shoulder pain. She does not think that any images were done at the outside hospital for her shoulder pain. She says it is mostly in her left scapula. She does take Farxiga which has falsely elevated her urine glucose. She was started on IV fluids as well as an insulin drip in the ER. She does have a slight elevation in her white blood cell count, and a UA demonstrates 500 leukocyte esterase as well as urine white blood cells and rare urine bacteria. She does have an SAGE with a creatinine of 1.71 when her baseline is 1. [facility] Medical History (Updated 06/27/23 @ 15:[address] To Martin, DO) Anemia Arthritis BPPV (benign paroxysmal positional vertigo) Carpal tunnel syndrome Diabetes Diarrhea Fatigue Hypertension Right rib fracture URI (upper respiratory infection) Home Medications venlafaxine 37.5 mg tablet 37.5 mg PO DAILY DEPRESSION 07/07/18 [History Last Taken 06/27/23] amlodipine 5 mg tablet 5 mg PO DAILY BLOOD PRESSURE 06/27/23 [History Last Taken 06/27/23] cyclobenzaprine 10 mg tablet 10 mg PO TID MUSCLE SPASMS 06/27/23 [History Last Taken 06/27/23] dapagliflozin propanediol 10 mg tablet (Farxiga) 10 mg PO DAILY DIABETES 06/27/23 [History Last Taken 06/27/23] fenofibric acid (choline) 135 mg capsule,delayed release 135 mg PO DAILY CHOLESTEROL 06/27/23 [History Last Taken 06/27/23] icosapent ethyl 1 gram capsule (Vascepa) 2 g PO BID HEART 06/27/23 [History Last Taken 06/27/23] metformin 500 mg tablet,extended release 24 hr 500 mg PO BID DIABETES 06/27/23 [History Last Taken 06/27/23] metoprolol tartrate 100 mg-hydrochlorothiazide 25 mg tablet 1 tab PO BID BLOOD PRESSURE 06/27/23 [History Last Taken 06/27/23] montelukast 10 mg tablet 10 mg PO DAILY ALLERGIES 06/27/23 [History Last Taken 06/27/23] Allergy/AdvReac Type Severity Reaction Status Date / Time ciprofloxacin [From Cipro] Allergy Rash Verified 06/27/23 12:16 erythromycin base Allergy Rash Verified 06/27/23 12:16 [Erythromycin Base] Penicillins [PCN] Allergy Rash Verified 06/27/23 12:16 Sulfa (Sulfonamide Allergy Rash Verified 06/27/23 12:16 Antibiotics) Family History (Updated 06/27/23 @ 17:[address] Aydin Lozano MD) Other Diabetes Surgical History (Updated 06/27/23 @ 14:[address] To Martin DO) History of History of carpal tunnel surgery of left wrist History of cholecystectomy History of hysterectomy Social History Smoking Status: Never smoker alcohol intake: never ROS Constitutional Constitutional: Denies chills, fatigue, fever(s) or malaise Eyes Eyes: Denies blurry vision ENT HEENT: Denies headache(s) or nasal discharge Cardiovascular Cardiovascular: Denies chest pain, dyspnea on exertion or syncope Respiratory/Chest Respiratory/Chest: Denies cough, shortness of breath at rest or shortness of breath with exertion Gastrointestinal Gastrointestinal: Denies constipation, diarrhea, nausea or vomiting Genitourinary Genitourinary: Denies dysuria Musculoskeletal Musculoskeletal: Reports joint pain Neurologic Neurologic: Denies focal weakness, numbness or tremor(s) Psychiatric Psychiatric: Denies anxiety or depression Vital Signs Vital Signs Vital Signs: 06/27/23 12:15 06/27/23 15:30 06/27/23 16:29 Temperature 97.9 F 98 F Temperature Source Temporal Oral Pulse Rate 89 75 82 Respiratory Rate 18 18 16 Blood Pressure 131/71 H 155/74 H 144/69 H Blood Pressure Mean 91 101 94 Pulse Ox 100 98 99 Oxygen Delivery Method Room Air Room Air Room Air Weight Weight: 154 lb 5.177 oz Body Mass Index (BMI) 26.4 Physical Exam Narrative General: Alert, Oriented x3, Cooperative, No apparent distress HEENT: Atraumatic, PERRLA, EOMI, Normocephalic Oral: Dry mucosa Neck: Supple, No JVD Lungs: Clear to auscultation, Normal air movement, No rhonchi, No wheeze, No rales Cardiovascular: Regular rate, Regular Rhythm, Normal S1, Normal S2, No murmurs Abdomen: Soft, Non Tender, Non-Distended, No Hepato-splenomegaly Extremities: No edema, Capillary Refill Less than 3 Seconds Skin: No rashes, No breakdown Musculoskeletal: Mild tenderness to palpation in her left scapula Neurological: Cranial nerves II-XII grossly intact, Motor Exam 5/5 strength throughout, Sensory exam intact to light touch and pain Psych/Mental Status: Normal Affect, Appropriate Results Lab / Micro Data 06/27/23 14:07 06/27/23 14:07 Labs: Laboratory Results - last 24 hr 06/27/23 14:07: WBC 12.0 H, RBC 5.58 H, Hgb 13.8, Hct 43.7, MCV 78.3 L, MCH 24.7 L, MCHC 31.6 L, RDW Std Deviation 40.9, RDW Coeff of Zandra 14.5, Plt Count 439, MPV 10.5, Immature Gran % (Auto) 0.400, Neut % (Auto) 87.5 H, Lymph % (Auto) 6.4 L, [place] % (Auto) 5.6, Eos % (Auto) 0.0, Baso % (Auto) 0.1, Absolute Neuts (auto) 10.5 H, Absolute Lymphs (auto) 0.77 L, Nucleated RBC % 0, Sodium 125 L, Potassium 4.6, Chloride 85 L, Carbon Dioxide 19.0 L, Anion Gap 21 H, BUN 66 H, Creatinine 1.71 H, Estim Creat Clear Calc 29.08, Est GFR (MDRD) Af Amer 39 L, Est GFR (MDRD) Non-Af 32 L, BUN/Creatinine Ratio 38.6 H, Glucose 747 H*, Calcium 9.5, Troponin I High Sens < 3 L 06/27/23 15:33: Urine Color Yellow, Urine Clarity Sl. Cloudy, Urine pH 6.0, Ur Specific [place] 1.015, Urine Protein Negative, Urine Glucose (UA) 1000 H, Urine Ketones 150 A*, Urine Occult Blood 10 H, Urine Nitrite Negative, Urine Bilirubin Negative, Urine Urobilinogen Normal, Ur Leukocyte Esterase 500 H, Urine RBC 0-5 SEEN, Urine WBC 5-10 SEEN, Ur Squamous Epith Cells 0-5 SEEN, Amorphous Sediment 1+ URATE, Urine Bacteria RARE, Urine Mucus 0 SEEN, Urine Yeast 3+ 06/27/23 15:39: Acetone Level LARGE H 06/27/23 16:33: POC Glucose > 500 H* Radiology Impression Chest X-Ray 06/27/23 14:20 IMPRESSION: No acute abnormality is seen. Electronically Signed: Robson Holland MD at 14:56 EDT , Assessment & Plan Assessment/Plan (1) Left shoulder pain: (2) Acute kidney injury: (3) Diabetic ketoacidosis: PLAN: Plan 1. DM2 with DKA and SAGE/UTI ? Anticipate quick resolution as this was likely precipitated by the prednisone she was taking for her shoulder pain, her last dose was last night ? Continue with 3 times daily insulin as well as sliding scale insulin and long-acting insulin 10 units twice daily ? We will recheck a BMP at 6 PM ? Continue with aggressive hydration ? We will obtain a urine culture and continue with Rocephin, she does have frequent UTIs therefore would plan to discharge her on a different medication other than Farxiga ? Hold metformin 2. Left shoulder pain ?Pain started about a week ago and has had a gradual onset, no trauma. Most of it is on her left scapula and appears to be musculoskeletal ? No steroids ? Will obtain x-rays and proceed depending on findings 3. HTN ? Stable ? Continue with Norvasc 4. Anxiety/depression ? Stable ? Continue with home medications DVT: Lovenox 75 minutes was spent on direct patient care, including documentation as well as chart review and collaboration with colleagues Charges/Coding Visit Charges Inpatient E&M: 09319 Init Hosp L3
[2023-06-27] MEDS: 0.9% Normal Saline 1,000 ML 150 ML IV (17:21)
[2023-06-27] MEDS: Insulin Lispro 100 UNIT/ML INSULN.PEN 10 UNIT SC (17:21)
[2023-06-27] MEDS: Insulin Lispro 100 UNIT/ML INSULN.PEN SC ×2 (17:22→21:01)
[2023-06-27 17:27] VITALS: BP 141/78; PULSE 79; RESP 15; TEMP 36.1; O2SAT 96
--- NOTE | 2023-06-27 17:30 | RAD_ITS ---
INDICATION: Shoulder pain EXAMINATION/TECHNIQUE: X-RAY - LEFT XR Shoulder Min 2 Views 2 VIEWS COMPARISON: None. FINDINGS: SOFT TISSUES: No soft tissue swelling or gas. No radiopaque foreign body. BONES/JOINTS: No acute fracture or subluxation.. Normal alignment. Mild degenerative narrowing of the glenohumeral articulation and acromion clavicular joint.. No sclerotic or destructive changes observed. RAD/Shoulder min 2 Views IMPRESSION: Mild degenerative disease with no acute fracture or subluxation. Electronically Signed: Mayra Sauceda, at 17:45 EDT ,
[2023-06-27 17:34] VITALS: BMI 26.2
[2023-06-27] MEDS: Insulin Glargine-YFGN 100 UNIT/ML Pen 10 UNIT SC (17:56)
[2023-06-27 18:16] LABS: Bedside Glucose 481 mg/dL (74-106)
[2023-06-27 18:51] LABS: Anion Gap 15 (5-15); BUN 57 mg/dL (7-18); BUN/Creat Ratio 42.2 RATIO (10-20); Calcium,Total 8.6 mg/dL (8.5-10.1); Chloride 99 mmol/L (98-107); Creatinine, Serum 1.35 mg/dL (0.55-1.02); EST Glomerular Filtration Rate 42 mL/min (>60); Est Glom Filt Rate - Afr Amer 51 mL/min (>60); Estimated Creatinine Clearance 36.83 ml/min; Glucose 417 mg/dL (74-106); Potassium 3.9 mmol/L (3.5-5.1); Sodium Level 131 mmol/L (136-145)
[2023-06-27 19:42] VITALS: PULSE 73; RESP 12
[2023-06-27] MEDS: Lidocaine 5% Patch 1 PATCH TOPICAL (20:03)
[2023-06-27 20:05] VITALS: BP 127/62; PULSE 81; PULSE 82; RESP 12; RESP 16; TEMP 36; O2SAT 97; O2SAT 98
[2023-06-27] MEDS: traMADol 50 MG Tablet 25 MG PO (21:20)
[2023-06-27 21:22] LABS: Bedside Glucose 318 mg/dL (74-106)
[2023-06-28] VITALS (7 sets, daily range): BP systolic 123–154; BP diastolic 67–82; PULSE 84–102; RESP 12–23; TEMP 36.1–36.6; O2SAT 85–99
[2023-06-28] MEDS: 0.9% Normal Saline 1,000 ML 150 ML IV ×4 (00:32→22:08)
[2023-06-28] MEDS: traMADol 50 MG Tablet 25 MG PO (01:16)
[2023-06-28] MEDS: traMADol 50 MG Tablet PO ×3 (04:08→17:00)
[2023-06-28] MEDS: 0.9% Saline Lock 10 ML Syringe IV (04:09)
[2023-06-28 04:19] LABS: Absolute Lymphocyte Count 1.49 X10^3/uL (0.83-4.51); Absolute Neutrophil Count 5.5 X10^3/uL (2.0-7.7); Basophil# 0.01 X10^3/uL; Basophil% 0.1 % (0-1); Eosinophil# 0.01 X10^3/uL; Eosinophils% 0.1 % (0-5); Hematocrit 37.2 % (37-47); Hemoglobin 11.2 g/dL (12.0-15.0); Lymphocyte # 1.49 X10^3/ul (0.83-4.51); Lymphocyte % 19.2 % (19-41); Mean Corp Hgb Conc 30.1 g/dL (32-36); Mean Corpuscular Hgb 24.1 pg (27.0-32.0); Mean Corpuscular Volume 80.2 fL (81-99); Monocyte# 0.71 X10^3/uL; Monocyte% 9.1 % (0-10); NRBC Flagged by Analyzer 0 % (0-5); Neutrophil # 5.52 X10^3/uL (2.7-7.7); Neutrophil % 71.2 % (47-70); Platelet Count 333 K/mm3 (150-450); RBC Distribution Width CV 14.3 % (11.6-14.6); RBC Distribution Width SD 41.5 fl (35.1-43.9); Red Blood Count 4.64 M/mm3 (4.2-5.4); White Blood Count 7.8 K/mm3 (4.4-11.0)
[2023-06-28 04:31] LABS: Anion Gap 7 (5-15); BUN 42 mg/dL (7-18); BUN/Creat Ratio 40.8 RATIO (10-20); Calcium,Total 8.3 mg/dL (8.5-10.1); Chloride 107 mmol/L (98-107); Creatinine, Serum 1.03 mg/dL (0.55-1.02); EST Glomerular Filtration Rate 57 mL/min (>60); Est Glom Filt Rate - Afr Amer 69 mL/min (>60); Estimated Creatinine Clearance 48.28 ml/min; Glucose 294 mg/dL (74-106); Potassium 3.5 mmol/L (3.5-5.1); Sodium Level 138 mmol/L (136-145)
[2023-06-28] MEDS: Insulin Glargine-YFGN 100 UNIT/ML Pen 10 UNIT SC ×2 (08:20→16:56)
[2023-06-28] MEDS: Insulin Lispro 100 UNIT/ML INSULN.PEN SC ×3 (08:21→16:23)
[2023-06-28] MEDS: amLODIPine 5 MG Tablet PO (08:21)
[2023-06-28] MEDS: Enoxaparin 30 MG/0.3 ML Syringe SC (08:22)
[2023-06-28] MEDS: Fenofibrate 145 MG Tablet PO (08:22)
[2023-06-28] MEDS: Venlafaxine XR 37.5 MG Capsule PO (08:22)
[2023-06-28] MEDS: Lidocaine 5% Patch 1 PATCH TOPICAL (08:24)
[2023-06-28] MEDS: hydroCHLOROthiazide 25 MG Tablet PO (08:29)
[2023-06-28 08:45] LABS: Bedside Glucose 199 mg/dL (74-106)
--- NOTE | 2023-06-28 10:19 | RAD_ITS ---
STUDY: X-RAY - CERVICAL SPINE REASON FOR EXAM: Female, 62 years old. left arm pain TECHNIQUE: 6 view(s) of the cervical spine were obtained. COMPARISON: None FINDINGS: Normal anterior atlantoaxial articulation. Normal odontoid process. There is straightening of the normal cervical lordosis. There is diffuse demineralization of the cervical spine. There is multi-level degenerative disc disease with multilevel disc space narrowing, most pronounced at C5-6.. Normal visualized intervertebral neuroforamina except for narrowing at C5-6.. The soft tissue structures are unremarkable. RAD/Cerv Spine 4 or 5 Views IMPRESSION: Multilevel degenerative changes, findings most pronounced at C5-6, no acute fracture or suspicious osseous lesion Electronically Signed: Lucian Meyers MD at 15:00 EDT ,
[2023-06-28 10:54] LABS: Troponin-I HS 4 pg/mL (3.0-54.0)
[2023-06-28] MEDS: Metoprolol(XL)Succ 100 MG Tablet PO (11:35)
[2023-06-28] MEDS: Ceftriaxone 1 GM/50 ML BAG IV (11:37)
[2023-06-28 11:51] LABS: Bedside Glucose 274 mg/dL (74-106)
--- NOTE | 2023-06-28 12:03 | CASEMGMT ---
CHRIS SMITH Face to Face with patient for initial transition planning/care coordination assessment. RN CM introduced self and role at [facility]. Patient lying in bed, alert and oriented. Patient willing to participate in assessment and is able to answer all questions appropriately.? Care providers, pharmacy, and demographics verified. Patient wishes to discharge home, denies need for home health at this time.? Patient states she has no further needs or concerns at this time. CM to follow for discharge planning needs that may arise. PCP:Charissa Specialists:None Preferred [facility]acy:[facility] Insurance:[employer] [place] Prescription Benefit:?Yes Living Will/HPOA:Yes; , Andres David, and then her daughter Miguel LNOK:, Andres David, and daughter Miguel Living Arrangements:Patient lives wither her in a one story home with FFSU and two modified steps to enter (they plan to put in a railing as well). Patient reports she is independent in all ADLs and ambulation, but states she has been needing help getting up from the toilet during this admission. Transportation:Self, , and daughter DME/HHC:Patient reports they have several pieces of DME that all came from caring for her mother (who has since ): shower chair, raised toilet seat, cane, crutches, grab bars in shower, rollator, W/C, pulse ox and glucometer/supplies. Patient reports she feels she will need to have grab bars placed by her toilet at home to assist her with getting off the toilet. No preference for DME company. Patient denies any previous SNF or HHC. Disposition Plan:Patient to discharge home with family support and follow-up plans in place. Ivette MOSES, RN, CM
[2023-06-28 13:01] LABS: Troponin-I HS 4 pg/mL (3.0-54.0)
--- NOTE | 2023-06-28 13:33 | PN_ITS ---
Subjective Subjective Patient seen and examined. She still complained of left shoulder pain. She said she had associated numbness and tingling of left fingers. SHe describes pain as sharp and says it has been going on for ~ 2 weeks. Review of systems is otherwise negative. Anion gap has closed. Objective Data Objective Data Vital Signs: Vital Signs Temp Pulse Resp BP Pulse Ox O2 Del Method 97.6 F L 98 17 143/74 H 97 Room Air 06/28/23 08:00 06/28/23 11:35 06/28/23 08:00 06/28/23 11:35 06/28/23 08:00 06/28/23 08:00 Oxygen Delivery Method Room Air Weight: 153 lb 3 oz Body Mass Index (BMI) 26.2 Intake & Output: Intake and Output for Last 24 Hours 06/26/23 06/27/23 06/28/23 23:59 23:59 23:59 Intake Total 2162.95 / 2162.95 1999 Balance 2162.95 / 2162.95 1999 Lab / Micro Data 06/28/23 04:00 06/28/23 04:00 Labs: Laboratory Results - last 24 hr 06/27/23 14:07: WBC 12.0 H, RBC 5.58 H, Hgb 13.8, Hct 43.7, MCV 78.3 L, MCH 24.7 L, MCHC 31.6 L, RDW Std Deviation 40.9, RDW Coeff of Zandra 14.5, Plt Count 439, MPV 10.5, Immature Gran % (Auto) 0.400, Neut % (Auto) 87.5 H, Lymph % (Auto) 6.4 L, [place] % (Auto) 5.6, Eos % (Auto) 0.0, Baso % (Auto) 0.1, Absolute Neuts (auto) 10.5 H, Absolute Lymphs (auto) 0.77 L, Nucleated RBC % 0, Sodium 125 L, Potassium 4.6, Chloride 85 L, Carbon Dioxide 19.0 L, Anion Gap 21 H, BUN 66 H, Creatinine 1.71 H, Estim Creat Clear Calc 29.08, Est GFR (MDRD) Af Amer 39 L, Est GFR (MDRD) Non-Af 32 L, BUN/Creatinine Ratio 38.6 H, Glucose 747 H*, Calcium 9.5, Troponin I High Sens < 3 L 06/27/23 15:33: Urine Color Yellow, Urine Clarity Sl. Cloudy, Urine pH 6.0, Ur Specific [place] 1.015, Urine Protein Negative, Urine Glucose (UA) 1000 H, Urine Ketones 150 A*, Urine Occult Blood 10 H, Urine Nitrite Negative, Urine Bilirubin Negative, Urine Urobilinogen Normal, Ur Leukocyte Esterase 500 H, Urine RBC 0-5 SEEN, Urine WBC 5-10 SEEN, Ur Squamous Epith Cells 0-5 SEEN, Amorphous Sediment 1+ URATE, Urine Bacteria RARE, Urine Mucus 0 SEEN, Urine Yeast 3+ 06/27/23 15:39: Acetone Level LARGE H 06/27/23 16:33: POC Glucose > 500 H* 06/27/23 17:18: POC Glucose 481 H* 06/27/23 17:55: Sodium 131 L, Potassium 3.9, Chloride 99, Carbon Dioxide 17.0 L, Anion Gap 15, BUN 57 H, Creatinine 1.35 H, Estim Creat Clear Calc 36.83, Est GFR (MDRD) Af Amer 51 L, Est GFR (MDRD) Non-Af 42 L, BUN/Creatinine Ratio 42.2 H, Glucose 417 H, Calcium 8.6 06/27/23 21:00: POC Glucose 318 H 06/28/23 04:00: WBC 7.8, RBC 4.64, Hgb 11.2 L, Hct 37.2, MCV 80.2 L, MCH 24.1 L, MCHC 30.1 L, RDW Std Deviation 41.5, RDW Coeff of Zandra 14.3, Plt Count 333, MPV 10.0, Immature Gran % (Auto) 0.300, Neut % (Auto) 71.2 H, Lymph % (Auto) 19.2, [place] % (Auto) 9.1, Eos % (Auto) 0.1, Baso % (Auto) 0.1, Absolute Neuts (auto) 5.5, Absolute Lymphs (auto) 1.49, Nucleated RBC % 0, Sodium 138, Potassium 3.5, Chloride 107, Carbon Dioxide 24.0, Anion Gap 7, BUN 42 H, Creatinine 1.03 H, Estim Creat Clear Calc 48.28, Est GFR (MDRD) Af Amer 69, Est GFR (MDRD) Non-Af 57 L, BUN/Creatinine Ratio 40.8 H, Glucose 294 H, Calcium 8.3 L 06/28/23 08:16: POC Glucose 199 H 06/28/23 10:30: Troponin I High Sens 4 06/28/23 11:29: POC Glucose 274 H 06/28/23 12:35: Troponin I High Sens 4 Micro: Microbiology 06/27/23 15:33 Urine, Clean Catch Urine Culture - Final Mixed Gram Positive Organisms Radiography Diagnostic Testing: Radiology Impression Chest X-Ray 06/27/23 14:20 IMPRESSION: No acute abnormality is seen. Electronically Signed: Robson Holland MD at 14:56 EDT , Shoulder X-Ray 06/27/23 17:30 IMPRESSION: Mild degenerative disease with no acute fracture or subluxation. Electronically Signed: Mayra Sauceda, at 17:45 EDT , Physical Exam Const alert, oriented x3 and no apparent distress General Appearance: cooperative and well developed HEENT normocephalic, head/scalp atraumatic, moist oral mucous membranes and oropharynx normal Eyes PERRL and EOMs intact bilaterally Neck no lymphadenopathy, supple and no JVD Lymph Lymphatic: no lymphadenopathy noted and no lymphedema noted Resp normal respiratory effort, normal air movement and clear to auscultation cedric aterally Cardio regular rate, regular rhythm, S1 normal heart sound, S2 normal heart sound and no murmurs GI normal to inspection, nondistended, normoactive bowel sounds, soft to palpation, non-tender and non-distended Extremity normal capillary refill, no clubbing, cyanosis or edema and no calf tenderness Skin General Skin Exam: no breakdown Neuro CN's II-XII intact bilaterally, no focal motor deficits, no sensory deficits noted and deep tendon reflexes 2+ bilaterally Neuro Narrative: power in LUE is 4+ Psych thought process normal, cooperative and affect normal Appearance: appropriate Assessment & Plan Assessment/Plan (1) Left shoulder pain: (2) Diabetic ketoacidosis: (3) Acute kidney injury: PLAN: Plan #DKA * resolved. Anion gap has closed * bicarb is WNL * now transitioned to her home dose of lantus * ISS. Accuchecks ACHS * on dapagliflozin, metformin and * #Left shoulder pain * complains of left shoulder pain that radiates to her left arm, with associated parasthesias of left hand * I am concerned about radiculopathy; will get CT of the cervical spine. WIll also get a troponin series to ensure it is not related to a cardiac pathology * PO tylenol and oxycodone for pain. * PT/OT consulted. * Fall precautions * #UTI: on IV ceftriaxone. URine cultures pending. #Hypertension: on norvasc and hydrochlorthiazide as well as metoprolol #ANxiety and depression; on venlafaxine DVT prophylaxis: lovenox Charges/Coding Visit Charges Inpatient E&M: 01397 Subs Hosp L2
[2023-06-28] MEDS: Insulin Lispro 100 UNIT/ML INSULN.PEN 10 UNIT SC ×2 (13:34→16:25)
[2023-06-28] MEDS: cycloBENZAPRine HCl 10 MG Tablet PO ×2 (13:59→21:44)
[2023-06-28 16:44] LABS: Bedside Glucose 192 mg/dL (74-106)
[2023-06-28 16:50] LABS: Troponin-I HS 4 pg/mL (3.0-54.0)
[2023-06-28] MEDS: metFORMIN (XR) 500 MG Tablet PO (16:56)
[2023-06-29 02:00] VITALS: BP 151/74; PULSE 80; RESP 16; TEMP 36.6
[2023-06-29] MEDS: Ketorolac 15 MG/ML Vial IV ×2 (03:22→13:13)
[2023-06-29 03:36] LABS: Absolute Lymphocyte Count 1.18 X10^3/uL (0.83-4.51); Absolute Neutrophil Count 5.3 X10^3/uL (2.0-7.7); Basophil# 0.01 X10^3/uL; Basophil% 0.1 % (0-1); Eosinophil# 0.04 X10^3/uL; Eosinophils% 0.5 % (0-5); Hematocrit 36.1 % (37-47); Lymphocyte # 1.18 X10^3/ul (0.83-4.51); Lymphocyte % 16.2 % (19-41); Mean Corp Hgb Conc 30.5 g/dL (32-36); Mean Corpuscular Hgb 24.1 pg (27.0-32.0); Mean Corpuscular Volume 79.2 fL (81-99); Mean Platelet Vol. 10.1 fl (6.2-12.0); Monocyte# 0.71 X10^3/uL; Monocyte% 9.7 % (0-10); NRBC Flagged by Analyzer 0 % (0-5); Neutrophil # 5.31 X10^3/uL (2.7-7.7); Platelet Count 254 K/mm3 (150-450); RBC Distribution Width CV 14.3 % (11.6-14.6); RBC Distribution Width SD 40.9 fl (35.1-43.9); Red Blood Count 4.56 M/mm3 (4.2-5.4); White Blood Count 7.3 K/mm3 (4.4-11.0)
[2023-06-29 04:03] LABS: Bedside Glucose 137 mg/dL (74-106)
[2023-06-29 04:09] LABS: Anion Gap 7 (5-15); BUN 17 mg/dL (7-18); BUN/Creat Ratio 28.4 RATIO (10-20); Calcium,Total 8.5 mg/dL (8.5-10.1); Chloride 104 mmol/L (98-107); EST Glomerular Filtration Rate 107 mL/min (>60); Est Glom Filt Rate - Afr Amer 130 mL/min (>60); Estimated Creatinine Clearance 82.87 ml/min; Glucose 185 mg/dL (74-106); Potassium 2.9 mmol/L (3.5-5.1); Sodium Level 137 mmol/L (136-145)
[2023-06-29] MEDS: 0.9% Normal Saline 1,000 ML 150 ML IV (05:36)
[2023-06-29] MEDS: cycloBENZAPRine HCl 10 MG Tablet PO ×2 (05:37→13:13)
[2023-06-29 08:00] VITALS: BP 153/82; PULSE 88; RESP 16; TEMP 36.6; O2SAT 98
[2023-06-29 08:00] LABS: Bedside Glucose 157 mg/dL (74-106)
[2023-06-29] MEDS: Insulin Lispro 100 UNIT/ML INSULN.PEN 10 UNIT SC ×3 (08:11→16:34)
[2023-06-29] MEDS: Insulin Lispro 100 UNIT/ML INSULN.PEN SC ×2 (08:12→16:34)
[2023-06-29] MEDS: metFORMIN (XR) 500 MG Tablet PO (08:13)
[2023-06-29] MEDS: Insulin Glargine-YFGN 100 UNIT/ML Pen 10 UNIT SC ×2 (08:14→16:35)
[2023-06-29] MEDS: Ceftriaxone 1 GM/50 ML BAG IV (08:30)
[2023-06-29] MEDS: traMADol 50 MG Tablet PO ×3 (09:26→16:52)
[2023-06-29] MEDS: Lidocaine 5% Patch 1 PATCH TOPICAL (09:28)
[2023-06-29] MEDS: Venlafaxine XR 37.5 MG Capsule PO (09:29)
[2023-06-29] MEDS: hydroCHLOROthiazide 25 MG Tablet PO (09:29)
[2023-06-29] MEDS: Empagliflozin 25 MG Tablet PO (09:30)
[2023-06-29] MEDS: Enoxaparin 40 MG/0.4 ML Syringe SC (09:30)
[2023-06-29 09:31] VITALS: BP 153/82; PULSE 83
[2023-06-29] MEDS: Fenofibrate 145 MG Tablet PO (09:31)
[2023-06-29] MEDS: Metoprolol(XL)Succ 100 MG Tablet PO (09:31)
[2023-06-29] MEDS: amLODIPine 5 MG Tablet PO (09:31)
[2023-06-29] MEDS: Montelukast 10 MG Tablet PO (09:32)
--- NOTE | 2023-06-29 10:13 | MRI_ITS ---
HISTORY: severe neck and right arm pain. TECHNIQUE: Multiplanar and multisequence MR images of the cervical spine were obtained without contrast. 283 images. COMPARISON: XR prior day. FINDINGS: Motion artifact lowers the sensitivity of the examination. VERTEBRAE: Vertebral body heights maintained. Mild degenerative bone marrow endplate changes of C4-5, C5-6 and C6-7. VERTEBRAL ALIGNMENT: Mild reversal of the cervical lordosis without significant anterior or posterior subluxation. SPINAL CORD: Increased T2 signal at the C6-7 level. SOFT TISSUES: No prevertebral fluid collection. INTERVERTEBRAL DISCS: C2-3, C3-4: No significant posterior disc protrusion, central canal stenosis, or foraminal narrowing. C4-5: Mild posterior disc bulge osteophyte complex with abutment of the ventral cord, moderate central canal stenosis, and no significant foraminal narrowing. C5-6: Mild posterior disc bulge osteophyte complex with abutment of the ventral cord, moderate central canal stenosis, and mild bilateral foraminal narrowing. C6-7: Moderate disc bulge resulting in mild cord impingement, severe central canal stenosis, and mild left foraminal narrowing. C7-T1: No significant posterior disc protrusion, central canal stenosis, or foraminal narrowing. MRI/Spine Cervical (Routine) IMPRESSION: Multilevel degenerative disc disease resulting in severe spinal canal stenosis, mild cord impingement, and spinal cord edema at C6-7. Moderate spinal canal stenosis with abutment of the spinal cord at C4-5 and C5-6. Electronically Signed: Josefa Jackson MD at 14:32 EDT ,
[2023-06-29] MEDS: Potassium Chloride 10mEq/100mL 10 MEQ/100 ML IV.SOLN. 100 MEQ IV BOLUS ×4 (10:58→15:14)
[2023-06-29 11:47] LABS: Bedside Glucose 137 mg/dL (74-106)
[2023-06-29] MEDS: 0.9% Saline Lock 10 ML Syringe IV (13:13)
[2023-06-29 13:51] VITALS: BP 141/67; PULSE 86; RESP 16; TEMP 36.7; O2SAT 96
--- NOTE | 2023-06-29 15:21 | PCM.DC.SUM ---
Providers Date of Admission: 06/27/23 Date of Discharge: 06/29/23 Primary Care Physician: Dr. Jessica Carrington DO Reason For Visit: DKA, SAGE, LEFT SHOULDER PAIN Diagnosis Discharge Diagnosis (1) Left shoulder pain: Status: Acute Code(s): M25.512 - Pain in left shoulder (2) Diabetic ketoacidosis: Status: Acute Code(s): E11.10 - Type 2 diabetes mellitus with ketoacidosis without coma (3) Acute kidney injury: Status: Acute Code(s): N17.9 - Acute kidney failure, unspecified Plan #DKA resolved. Anion gap has closed bicarb is WNL now transitioned to her home dose of lantus ISS. Accuchecks ACHS on dapagliflozin, metformin and #Left shoulder pain complains of left shoulder pain that radiates to her left arm, with associated parasthesias of left hand I am concerned about radiculopathy; will get CT of the cervical spine. WIll also get a troponin series to ensure it is not related to a cardiac pathology PO tylenol and oxycodone for pain. PT/OT consulted. Fall precautions #UTI: on IV ceftriaxone. URine cultures pending. #Hypertension: on norvasc and hydrochlorthiazide as well as metoprolol #ANxiety and depression; on venlafaxine DVT prophylaxis: lovenox Medications at Discharge Home Medications venlafaxine 37.5 mg tablet 37.5 mg PO DAILY DEPRESSION 07/07/18 amlodipine 5 mg tablet 5 mg PO DAILY BLOOD PRESSURE 06/27/23 cyclobenzaprine 10 mg tablet 10 mg PO TID MUSCLE SPASMS 06/27/23 dapagliflozin propanediol 10 mg tablet (Farxiga) 10 mg PO DAILY DIABETES 06/27/23 fenofibric acid (choline) 135 mg capsule,delayed release 135 mg PO DAILY CHOLESTEROL 06/27/23 icosapent ethyl 1 gram capsule (Vascepa) 2 g PO BID HEART 06/27/23 metformin 500 mg tablet,extended release 24 hr 500 mg PO BID DIABETES 06/27/23 metoprolol tartrate 100 mg-hydrochlorothiazide 25 mg tablet 1 tab PO BID BLOOD PRESSURE 06/27/23 montelukast 10 mg tablet 10 mg PO DAILY ALLERGIES 06/27/23 gabapentin 300 mg capsule 300 mg PO BID #30 caps 06/29/23 insulin glargine 100 unit/mL (3 mL) subcutaneous pen (Lantus Solostar U-100 Insulin) 15 unit (0.15 mL) subcut QPM #15 mL 06/29/23 pen needle, diabetic 32 gauge x (Pen Needle) #100 ea 06/29/23 potassium chloride 20 mEq tablet,extended release 20 meq PO DAILY #10 tabs 06/29/23 prednisone 20 mg tablet 40 mg (2 x 20 mg) PO DAILY #10 tabs 06/29/23 Hospital Course Operations None Procedures None Summary of Care Provided Minutes Spent on Discharge: 55 Hospital Course: DARNELL WONG, is a 62 F with a PMH as outlined who was admitted through the ED on 06/27/2023 with a complaint of left shoulder pain which had been going on for a while. She was seen at an outside hospital for this about a week ago and sent home on prednisone. This subsequently had elevated blood sugars. She had been taking Farxiga. On admission she was found to be in DKA with elevated anion gap. Creatinine was also elevated. She was admitted and managed for DKA. She was placed on insulin drip and hydrated with fluids. Her DKA subsequently resolved. X-ray of the left shoulder showed mild degenerative disease with no acute fracture or subluxation. On further review, she also had associated numbness and tingling so there was concern about this pain being from probable multi degenerative disc disease of the neck. X-ray of the cervical spine done showed multilevel degenerative changes findings most pronounced at C5-6 with no acute fracture or suspicious lesions seen. Cervical spine MRI done showed multilevel degenerative disc disease resulting in severe spinal canal stenosis with mild cord impingement and spinal cord edema at C6-7 with moderate spinal canal stenosis with abutment of the spinal cord at C4-5 and C5-6. This hospitalist called spine surgery to discuss findings and plan was for patient to follow-up on outpatient basis with Dr. Sommers on 06/30 2023 at 8 AM. She was also discharged on subcu insulin Lantus 15 units daily and is also to follow-up with her primary care doctor within 1 week. Patient seen and examined prior to discharge. She had no active complaints. She had low potassium of 2.9 this morning and this was replaced. Labs and vitals reviewed. Home medication reviewed and reconciled. She had been treated for UTI on admission but urine cultures came back showing mixed gram-positive organisms so she was not discharged on any oral antibiotics. Physical Exam Const alert, oriented x3 and no apparent distress General Appearance: cooperative, comfortable, well kempt and well developed HEENT normocephalic, head/scalp atraumatic, hearing grossly normal bilaterally, moist oral mucous membranes and oropharynx normal Mouth: oral and palatal mucosa normal Eyes PERRL, EOMs intact bilaterally and conjunctivae normal Neck no lymphadenopathy, supple and no JVD Lymph Lymphatic: no lymphadenopathy noted and no lymphedema noted Resp normal respiratory effort, normal air movement, no use of accessory muscles and clear to auscultation bilaterally Cardio regular rate, regular rhythm, S1 normal heart sound, S2 normal heart sound and no murmurs GI normal to inspection, nondistended, normoactive bowel sounds, soft to palpation, non-tender and non-distended Extremity normal to inspection, full ROM, normal capillary refill, no clubbing, cyanosis or edema and no calf tenderness Skin no rashes or lesions noted and no wounds General Skin Exam: no breakdown Neuro oriented x3, CN's II-XII intact bilaterally, no focal motor deficits, no sensory deficits noted and deep tendon reflexes 2+ bilaterally Neuro Narrative: power in LUE is 4+ Sensorium / Orientation: awake and alert Psych thought process normal, cooperative and affect normal Appearance: appropriate Weight / BMI Weight Weight: 153 lb 3.011 oz Body Mass Index (BMI) 26.2 ABG / Lab / Microbiology Data 06/29/23 03:30 06/29/23 03:30 Laboratory: Laboratory Results - last 24 hr 06/28/23 16:15: Troponin I High Sens 4 06/28/23 16:20: POC Glucose 192 H 06/28/23 21:42: POC Glucose 137 H 06/29/23 03:30: WBC 7.3, RBC 4.56, Hgb 11.0 L, Hct 36.1 L, MCV 79.2 L, MCH 24.1 L, MCHC 30.5 L, RDW Std Deviation 40.9, RDW Coeff of Zandra 14.3, Plt Count 254, MPV 10.1, Immature Gran % (Auto) 0.500, Neut % (Auto) 73.0 H, Lymph % (Auto) 16.2 L, Alfalfa % (Auto) 9.7, Eos % (Auto) 0.5, Baso % (Auto) 0.1, Absolute Neuts (auto) 5.3, Absolute Lymphs (auto) 1.18, Nucleated RBC % 0, Sodium 137, Potassium 2.9 L, Chloride 104, Carbon Dioxide 26.0, Anion Gap 7, BUN 17, Creatinine 0.60, Estim Creat Clear Calc 82.87, Est GFR (MDRD) Af Amer 130, Est GFR (MDRD) Non-Af 107, BUN/Creatinine Ratio 28.4 H, Glucose 185 H, Calcium 8.5 06/29/23 07:38: POC Glucose 157 H 06/29/23 11:28: POC Glucose 137 H Microbiology: Microbiology 06/27/23 15:33 Urine, Clean Catch Urine Culture - Final Mixed Gram Positive Organisms Radiography Diagnostic Testing: Radiology Impression Cervical Spine MRI 06/29/23 10:13 IMPRESSION: Multilevel degenerative disc disease resulting in severe spinal canal stenosis, mild cord impingement, and spinal cord edema at C6-7. Moderate spinal canal stenosis with abutment of the spinal cord at C4-5 and C5-6. Electronically Signed: Josefa Jackson MD at 14:32 EDT Reading Location ID and State: [facility] / OR Tel , Service support , D/C Instructions Discharge Diet: Low fat / Low cholesterol Discharge Activity: Return to Normal Activity Weight Bearing Status: Weight bearing as tolerated Call your doctor if you observe: Fever of 101 or Higher, Shortness of breath, Dizziness, Swelling in the ankles and Chest pain Meaningful Use Info Meaningful Use Diagnoses (Choose all that apply): None applicable Discharge Plan Admission Admit Date/Time: 06/27/23 15:52 Primary Reason for Your Visit: DKA, left shoulder pain Attending Provider: Brionna Bowling Primary Care Provider: Jessica Carrington Consulting Providers: Aydin Lozano Instructions Patient Instructions: Diabetic Ketoacidosis Discharge Orders/Prescriptions Prescriptions: New prednisone 20 mg tablet 40 mg PO DAILY Qty: 10 0RF gabapentin 300 mg capsule 300 mg PO BID Qty: 30 0RF insulin glargine [Lantus Solostar U-100 Insulin] 100 unit/mL (3 mL) insulin pen 15 unit subcut QPM Qty: 15 0RF (DME) pen needle, diabetic [Pen Needle] 32 gauge x 5/32 needle See Rx Instructions .Route Qty: 100 2RF Rx Instructions: As directed potassium chloride 20 mEq tablet extended release 20 meq PO DAILY Qty: 10 0RF Continued venlafaxine 37.5 MG tablet 37.5 mg PO DAILY fenofibric acid (choline) 135 mg capsule,delayed release(DR/EC) 135 mg PO DAILY Patient Comments: PT STATES IT DOESNT SOUND FAMILIAR BUT IF PRESCRIBED IT THEN I TAKE. [facility] WAS CALLED AND THEY CONFIRMED IT WAS PICKED UP ON 06-24-23 cyclobenzaprine 10 mg tablet 10 mg PO TID amlodipine 5 mg tablet 5 mg PO DAILY Farxiga 10 mg tablet 10 mg PO DAILY metformin 500 mg tablet extended release 24 hr 500 mg PO BID icosapent ethyl [Vascepa] 1 gram capsule 2 g PO BID metoprolol ta-hydrochlorothiaz 100-25 mg tablet 1 tab PO BID Patient Comments: PT STATES TAKES ONCE DAILY montelukast 10 mg tablet 10 mg PO DAILY Referrals / Follow Up: Jessica Carrington DO [Primary Care Provider] - Within 2 Weeks Akira Sommers DO [Med Staff - Active Staff] - 06/30/23 8:00 am Disposition Disposition (needs filled in before D/C Order can be placed): Home, Self Care Charges/Coding Visit Charges Inpatient E&M: 52237 Disch Hosp >30min
--- NOTE | 2023-06-29 16:21 | CASEMGMT ---
CHRIS CM into pt room, nurse at bedside. Pt given rx for BGM. Pt denies any further homegoing needs. She is aware she can obtain this at her pharmacy.
--- NOTE | 2023-06-29 16:47 | CASEMGMT ---
Social Work SW met with pt and discussed advance directives. Pt states she has a living will and HCPOA naming her Chris David. SW updated pt documents are not on file at [facility] and requested they be brought in for scanning into EMR. ANDRADE Mcgregor
[2023-06-29 16:56] LABS: Bedside Glucose 153 mg/dL (74-106)
[2023-06-29 17:15] LABS: Anion Gap 5 (5-15); BUN 12 mg/dL (7-18); BUN/Creat Ratio 20.1 RATIO (10-20); Calcium,Total 8.4 mg/dL (8.5-10.1); Chloride 105 mmol/L (98-107); EST Glomerular Filtration Rate 108 mL/min (>60); Est Glom Filt Rate - Afr Amer 130 mL/min (>60); Estimated Creatinine Clearance 82.87 ml/min; Glucose 161 mg/dL (74-106); Potassium 3.3 mmol/L (3.5-5.1); Sodium Level 135 mmol/L (136-145)
[2023-06-29 17:55] LABS: Hemoglobin A1c > 14.0 % (3.8-5.6)
[2023-06-29 18:45] VITALS: BP 141/67; PULSE 86; RESP 16; TEMP 36.7; O2SAT 96
== END 2023-06-29 18:54 | disposition home or self-care (01) | DRG 637 ==
LOC: ED 15:13 → ICU 17:28
PROVIDERS: Admitting Provider Family Medicine; Emergency Provider Emergency Medicine; PCP Internal Medicine; Visit Provider Student in an Organized Health Care Education/Training Program
DX: E11.10 Type 2 diabetes mellitus with ketoacidosis without coma (principal); G95.19 Other vascular myelopathies; N17.9 Acute kidney failure, unspecified; N39.0 Urinary tract infection, site not specified; Z79.4 Long term (current) use of insulin; I10 Essential (primary) hypertension; F32.9 Major depressive disorder, single episode, unspecified; M25.512 Pain in left shoulder; M50.30 Other cervical disc degeneration, unspecified cervical region; M19.012 Primary osteoarthritis, left shoulder; F41.9 Anxiety disorder, unspecified
CPT/HCPCS: 71046; 72050; 72141; 73030; 80048; 81001; 82009; 82962; 83036; 84484; 85025; 87086; 87088; 93005; 99284; J7030; A4216; J2405

== ENCOUNTER → 2023-08-08 | Outpatient (CLI) | payer OTHER, SELFPAY ==
[2023-08-08 17:47] LABS: Amphetamine Urine VISTA NEGATIVE (<1000 ng/mL); Barbiturate Urine VISTA NEGATIVE (< 200 ng/mL); Benzodiazepine Urine VISTA NEGATIVE (< 200 ng/mL); Cocaine Urine VISTA NEGATIVE (< 300 ng/mL); Ecstacy Urine VISTA NEGATIVE (< 500 ng/mL); Methadone Urine VISTA NEGATIVE (< 300 ng/mL); PCP Urine VISTA NEGATIVE (< 25 ng/mL); THC Urine VISTA POSITIVE (< 50 ng/mL); Vista UDS pH Range 5
== END | disposition home or self-care (01) ==
LOC: LAB 16:35
PROVIDERS: PCP Internal Medicine; Referring Provider Anesthesiology; Visit Provider Anesthesiology
DX: F11.20 Opioid dependence, uncomplicated (principal)
CPT/HCPCS: 80307

== ENCOUNTER → 2023-09-12 | Outpatient (CLI) | payer OTHER, SELFPAY ==
[2023-09-12 13:15] LABS: Mucous, Urine 0 SEEN /hpf (<or=2+); Red Blood Cells-Urine 0 SEEN /hpf (0-5)
[2023-09-12 13:30] LABS: Color, Urine Yellow (Yellow); Glucose, Dipstick 1000 mg/dl (Normal); Ketone-Dipstick Negative (Negative); Leukocyte Esterase-Dipstick 500 /ul (Negative); Nitrite-Dipstick Negative (Negative); Occult Blood-Urine 10 /ul (Negative); Protein-Dipstick 30 mg/dl (Negative); Urine Bilirubin Dipstick Negative (Negative); Urine Clarity Sl. Cloudy (Clear); Urine Urobilinogen Normal (Normal); Urine pH 6.5 (5.0 - 8.0)
[2023-09-12 13:41] LABS: Bacteria 3+ /hpf (None Seen); Squamous Epithelial Cells - UA 0-5 SEEN /hpf (5-10); White Blood Cells >100 SEEN /hpf (0-5)
== END | disposition home or self-care (01) ==
LOC: LABSPEC 12:52
PROVIDERS: PCP Internal Medicine; Referring Provider Physician Assistant; Visit Provider Physician Assistant
DX: R30.0 Dysuria (principal)
CPT/HCPCS: 81001; 87077; 87086; 87088; 87186

== ENCOUNTER 2023-10-05 12:53 | Emergency (ER) | payer OTHER, SELFPAY ==
[2023-10-05 12:54] VITALS: BP 143/81; PULSE 116; RESP 18; TEMP 36.2; O2SAT 100; BMI 27.3
[2023-10-05] MEDS: Famotidine 20 MG Tablet 40 MG PO (13:35)
[2023-10-05] MEDS: DiphenhydrAMINE 50 MG/ML Syringe 25 MG IV (13:42)
[2023-10-05] MEDS: MethylPREDNISolone 125 MG/2 ML Vial IV (13:42)
--- NOTE | 2023-10-05 14:42 | EDS_ITS ---
HPI <Dr. Ramiro Gorman DO - Last Filed: 10/05/23 15:18> History of Present Illness Chief Complaint: Allergic Reaction Informant: patient Narrative Narrative: 63-year-old female presenting to the emergency room for hives. Patient states t hat she was diagnosed with a urinary tract infection. About a week ago she states that she was also given some doxycycline as a second antibiotic for the treatment of it. She states she has had some itching each time she has taken the doxycycline but resolved with Benadryl. Today she took the doxycycline and began to have itching and about 2 hours later had hives. She states the Benadryl is not helping. She denies any respiratory or oropharyngeal symptoms. She states that the dysuria and frequency she was experiencing with the urinary tract infection has resolved. Urine culture grew E. coli. [facility] <Dr. Ramiro Gorman DO - Last Filed: 10/05/23 15:18> [facility] Medical History Anemia Arthritis BPPV (benign paroxysmal positional vertigo) Carpal tunnel syndrome Diabetes Diarrhea Fatigue Hypertension Left shoulder pain Right rib fracture URI (upper respiratory infection) Home Medications venlafaxine 37.5 mg tablet 37.5 mg PO DAILY DEPRESSION 07/07/18 [History Last Taken 06/27/23] amlodipine 5 mg tablet 5 mg PO DAILY BLOOD PRESSURE 06/27/23 [History Last Taken 06/27/23] fenofibric acid (choline) 135 mg capsule,delayed release 135 mg PO DAILY CHOLESTEROL 06/27/23 [History Last Taken 06/27/23] icosapent ethyl 1 gram capsule (Vascepa) 2 g PO BID HEART 06/27/23 [History Last Taken 06/27/23] metformin 500 mg tablet,extended release 24 hr 500 mg PO BID DIABETES 06/27/23 [History Last Taken 06/27/23] metoprolol tartrate 100 mg-hydrochlorothiazide 25 mg tablet 1 tab PO BID BLOOD PRESSURE 06/27/23 [History Last Taken 06/27/23] montelukast 10 mg tablet 10 mg PO DAILY ALLERGIES 06/27/23 [History Last Taken 06/27/23] pen needle, diabetic 32 gauge x 5/32 (Pen Needle) #100 ea 06/29/23 [Rx Last Taken Unknown] potassium chloride 20 mEq tablet,extended release 20 meq PO DAILY #10 tabs 06/29/23 [Rx Last Taken Unknown] blood sugar diagnostic (OneTouch Verio test strips) #100 ea 07/06/23 [Rx Last Taken Unknown] cyclobenzaprine 10 mg tablet 10 mg PO TID PRN muscle spasm #21 tabs 07/15/23 [Rx Last Taken Unknown] dapagliflozin propanediol 10 mg tablet (Farxiga) 10 mg PO DAILY #90 tabs 09/09/23 [Rx Last Taken Unknown] glimepiride 2 mg tablet 2 mg PO DAILY #90 tabs 09/09/23 [Rx Last Taken Unknown] insulin detemir U-100 100 unit/mL (3 mL) subcutaneous pen (Levemir FlexPen) 40 unit (0.4 mL) subcut QHS #36 mL 09/09/23 [Rx Last Taken Unknown] famotidine 40 mg tablet (Pepcid) 40 mg PO DAILY #5 tabs 10/05/23 [Rx Last Taken Unknown] prednisone 20 mg tablet 60 mg (3 x 20 mg) PO DAILY #15 TABLETS 10/05/23 [Rx Last Taken Unknown] Allergy/AdvReac Type Severity Reaction Status Date / Time doxycycline Allergy Mild Hives Verified 10/05/23 12:55 ciprofloxacin [From Cipro] Allergy Rash Verified 10/05/23 12:55 erythromycin base Allergy Rash Verified 10/05/23 12:55 [Erythromycin Base] Penicillins [PCN] Allergy Rash Verified 10/05/23 12:55 Sulfa (Sulfonamide Allergy Rash Verified 10/05/23 12:55 Antibiotics) Family History Other Diabetes Surgical History History of History of carpal tunnel surgery of left wrist History of cholecystectomy History of hysterectomy Social History Smoking Status: Never smoker alcohol intake: never ROS <Dr. Ramiro Gorman DO - Last Filed: 10/05/23 15:18> ROS ED Constitutional Constitutional ED: Denies chills, fever(s) or weight loss Eyes Eyes: Denies change in vision or diplopia ENT ENT ED: Reports other Details: No lip throat or tongue swelling ; Denies ear pain, rhinorrhea or sore throat Cardiovascular Cardiovascular: Denies chest pain, orthopnea, palpitations or racing heartbeat Respiratory/Chest Respiratory/Chest: Denies cough, dyspnea, dyspnea on exertion or orthopnea Gastrointestinal Gastrointestinal: Denies abdominal pain, diarrhea, nausea or vomiting Genitourinary Genitourinary ED: Denies dysuria, hematuria or urinary frequency Musculoskeletal Musculoskeletal: Denies arthralgias or myalgias Integumentary Reports rash; Denies abscess Neurologic Neurologic: Denies headache(s) or weakness Psychiatric Psychiatric: Denies anxiety, depression, suicidal ideation or suicidal thoughts Endocrine Endocrinology: Denies polydipsia, polyphagia or polyuria Allergic/Immunologic Allergic/Immunologic ED: Denies mouth swelling, tongue swelling or urticaria EXAM <Dr. Ramiro Gorman DO - Last Filed: 10/05/23 15:18> Physical Exam Narrative Exam Narrative: Patient does not appear in extremitas. She is diffusely itching. She has no dyspnea and is handling secretions normally. Const Vital Signs: 10/05/23 12:54 Temperature 97.2 F L Temperature Source Temporal Pulse Rate 116 H Respiratory Rate 18 Blood Pressure 143/81 H Blood Pressure Mean 101 Pulse Ox 100 Oxygen Delivery Method Room Air Positive well nourished and well developed General Appearance ED: well developed HEENT Reports normocephalic, head/scalp atraumatic and moist mucous membranes Eyes PERRL and EOMs intact bilaterally Neck no lymphadenopathy, supple and no JVD Resp normal respiratory effort and clear to auscultation bilaterally Cardio regular rate, regular rhythm and no murmurs GI normal to inspection, nondistended, normoactive bowel sounds and non-tender Palpation: soft Back/Spine no CVA tenderness and normal ROM Extremity normal to inspection General Extremety ED: Negative for edema General Extremity: Negative for edema Neuro oriented x3 and CN's II-XII intact bilaterally Sensorium / Orientation: alert Motor Exam: strength 5/5 throughout Psych mental status grossly normal Mood & Affect: Negative for depressed or tearful Skin no wounds Skin Narrative: Patient has diffuse hives. She is itching with evidence of very dry skin. <Miles Harmon MD - Last Filed: 10/05/23 15:40> Physical Exam Const Vital Signs: 10/05/23 12:54 Temperature 97.2 F L Temperature Source Temporal Pulse Rate 116 H Respiratory Rate 18 Blood Pressure 143/81 H Blood Pressure Mean 101 Pulse Ox 100 Oxygen Delivery Method Room Air [facility] <Dr. Ramiro Gorman DO - Last Filed: 10/05/23 15:18> [facility] Narrative Medical decision making narrative: IV was established the patient received Benadryl Solu-Medrol and Pepcid. Urinalysis was obtained. Lab Data Labs: Laboratory Results - last 24 hr 10/05/23 15:00 Urine Color Yellow Urine Clarity Clear Urine pH 6.5 Ur Specific [place] 1.015 Urine Protein 15 H Urine Glucose (UA) 1000 H Urine Ketones Negative Urine Occult Blood Negative Urine Nitrite Negative Urine Bilirubin Negative Urine Urobilinogen Normal Ur Leukocyte Esterase 100 H Urine RBC 0 SEEN Urine WBC 0 SEEN Ur Squamous Epith Cells 0-5 SEEN Urine Bacteria 0 SEEN Urine Mucus 0 SEEN <Miles Harmon MD - Last Filed: 10/05/23 15:40> [facility] Lab Data Labs: Laboratory Results - last 24 hr 10/05/23 15:00 Urine Color Yellow Urine Clarity Clear Urine pH 6.5 Ur Specific [place] 1.015 Urine Protein 15 H Urine Glucose (UA) 1000 H Urine Ketones Negative Urine Occult Blood Negative Urine Nitrite Negative Urine Bilirubin Negative Urine Urobilinogen Normal Ur Leukocyte Esterase 100 H Urine RBC 0 SEEN Urine WBC 0 SEEN Ur Squamous Epith Cells 0-5 SEEN Urine Bacteria 0 SEEN Urine Mucus 0 SEEN Treatment and Re-Evaluation :: Dr. Harmon: Patient endorsed to me by Dr. Gorman to check the UA on this patient that was having an allergic reaction to doxycycline and was placed on d oxycycline. I reviewed her urinalysis and there is no evidence of infection with 0-5 white cells. I do not feel she needs further antibiotics. She is resting comfortably at approximately 1540 and is agreeable to discharge. Return instructions to the emergency department were reviewed. Disposition is discharged home in stable condition. Discharge Plan Triage Chief Complaint: Allergic Reaction Other Complaint: Rash ED Provider: Ramiro Gorman Dx/Rx/DC Orders Clinical Impression: Hives, Acute allergic reaction, Allergy to drug Instructions: ED Hives (Adult) Prescriptions: New prednisone 20 mg tablet 60 mg PO DAILY Qty: 15 0RF famotidine [Pepcid] 40 mg tablet 40 mg PO DAILY Qty: 5 0RF No Action (DME) OneTouch Verio test strips Strip See Rx Instructions .Route Qty: 100 5RF Rx Instructions: BID venlafaxine 37.5 MG tablet 37.5 mg PO DAILY fenofibric acid (choline) 135 mg capsule,delayed release(DR/EC) 135 mg PO DAILY Patient Comments: PT STATES IT DOESNT SOUND FAMILIAR BUT IF PRESCRIBED IT THEN I TAKE. [facility] WAS CALLED AND THEY CONFIRMED IT WAS PICKED UP ON 06-24-23 amlodipine 5 mg tablet 5 mg PO DAILY metformin 500 mg tablet extended release 24 hr 500 mg PO BID icosapent ethyl [Vascepa] 1 gram capsule 2 g PO BID metoprolol ta-hydrochlorothiaz 100-25 mg tablet 1 tab PO BID Patient Comments: PT STATES TAKES ONCE DAILY montelukast 10 mg tablet 10 mg PO DAILY (DME) pen needle, diabetic [Pen Needle] 32 gauge x 5/32 needle See Rx Instructions .Route Qty: 100 2RF Rx Instructions: As directed potassium chloride 20 mEq tablet extended release 20 meq PO DAILY Qty: 10 0RF cyclobenzaprine 10 mg tablet 10 mg PO TID PRN (Reason: muscle spasm) Qty: 21 0RF glimepiride 2 mg tablet 2 mg PO DAILY Qty: 90 1RF Levemir FlexPen 100 unit/mL (3 mL) insulin pen 40 unit subcut QHS Qty: 36 1RF Farxiga 10 mg tablet 10 mg PO DAILY Qty: 90 1RF Primary Care Provider: Jessica Carrington Referrals: Jessica Carrington DO [Primary Care Provider] - 1 Week Activity Restrictions/Additional Instructions: Based on what you have told us today and your physical exam at this point I would consider you to have an allergy to doxycycline. I do recommend continued Benadryl as needed for symptoms of itching/hives. I will also write for short course of prednisone. Please be advised that this will make your blood sugars rise but it will be temporary and will resolve when you are off the prednisone. Disposition Disposition: Home, Self Care
[2023-10-05 15:18] LABS: Bacteria 0 SEEN /hpf (None Seen); Mucous, Urine 0 SEEN /hpf (<or=2+); Red Blood Cells-Urine 0 SEEN /hpf (0-5); White Blood Cells 0 SEEN /hpf (0-5)
[2023-10-05 15:22] LABS: Color, Urine Yellow (Yellow); Glucose, Dipstick 1000 mg/dl (Normal); Ketone-Dipstick Negative (Negative); Leukocyte Esterase-Dipstick 100 /ul (Negative); Nitrite-Dipstick Negative (Negative); Occult Blood-Urine Negative /ul (Negative); Protein-Dipstick 15 mg/dl (Negative); Specific Gravity, Urine 1.015 (1.002-1.030); Urine Bilirubin Dipstick Negative (Negative); Urine Clarity Clear (Clear); Urine Urobilinogen Normal (Normal); Urine pH 6.5 (5.0 - 8.0)
[2023-10-05 15:29] LABS: Squamous Epithelial Cells - UA 0-5 SEEN /hpf (5-10)
== END 2023-10-05 15:52 | disposition home or self-care (01) ==
PROVIDERS: Emergency Provider Emergency Medicine; PCP Internal Medicine; Referring Provider Emergency Medicine; Visit Provider Emergency Medicine
DX: L50.9 Urticaria, unspecified (principal); E11.9 Type 2 diabetes mellitus without complications; Z79.4 Long term (current) use of insulin; T36.4X5A Adverse effect of tetracyclines, initial encounter; I10 Essential (primary) hypertension; Z79.899 Other long term (current) drug therapy; Z79.84 Long term (current) use of oral hypoglycemic drugs; Z90.49 Acquired absence of other specified parts of digestive tract; Z90.710 Acquired absence of both cervix and uterus
CPT/HCPCS: 81001; 96374; 96375; 99282

== ENCOUNTER → 2023-11-01 | Outpatient (CLI) | payer OTHER, SELFPAY ==
[2023-11-01 15:52] LABS: Hemoglobin A1c 6.6 % (3.8-5.6)
== END | disposition home or self-care (01) ==
LOC: LAB 14:12
PROVIDERS: PCP Internal Medicine; Referring Provider Anesthesiology; Visit Provider Anesthesiology
DX: E11.9 Type 2 diabetes mellitus without complications (principal)
CPT/HCPCS: 36415; 83036

== ENCOUNTER 2024-07-06 12:50 | Outpatient (CLI) | payer OTHER, SELFPAY ==
[2024-07-06 13:17] VITALS: BP 159/74; PULSE 108; RESP 16; TEMP 36.6; O2SAT 98; BMI 25.4
[2024-07-06] MEDS: DEXTROSE 5% IVPB (13:26)
[2024-07-06] MEDS: WATER IVPB (13:26)
[2024-07-06] MEDS: 0.9% NaCl Peripheral Flush Adult/Peds IV (13:26)
[2024-07-06] MEDS: 0.9% NaCl IVPB Med Flush (250 mL) 15 ML IV (13:26)
[2024-07-06] MEDS: GENTAMICIN IVPB (13:26)
[2024-07-06 14:24] VITALS: BP 130/84; PULSE 99; RESP 16; TEMP 36.6; O2SAT 99
== END 2024-07-06 23:59 | disposition home or self-care (01) ==
LOC: MEDOUTP 12:53
PROVIDERS: PCP Internal Medicine; Referring Provider Internal Medicine; Visit Provider Internal Medicine
DX: N39.0 Urinary tract infection, site not specified (principal)
CPT/HCPCS: 96365; J7050; A4216

== ENCOUNTER → 2024-07-13 | Outpatient (CLI) | payer OTHER, SELFPAY ==
--- NOTE | 2024-07-13 10:20 | US_ITS ---
STUDY: SUPERFICIAL ULTRASOUND - LEFT HIP REASON FOR EXAM: Female, 64 years old. leg mass, left thigh/hip area TECHNIQUE: A superficial ultrasound was performed with real-time and static padilla-scale imaging. COMPARISON: None. FINDINGS: There is no cystic or solid nodules identified. There is no free fluid US/Ext Non Vasc Limited/Soft Tiss IMPRESSION: No sonographic evidence for focal mass at the site of the palpable lump in left thigh. CT or MRI would be helpful for further evaluation if clinically warranted Electronically Signed: Saul Acharya MD at 19:46 EDT ,
== END | disposition home or self-care (01) ==
PROVIDERS: PCP Internal Medicine; Referring Provider Internal Medicine; Visit Provider Internal Medicine
DX: R22.42 Localized swelling, mass and lump, left lower limb (principal)
CPT/HCPCS: 76882

== ENCOUNTER → 2025-01-28 | Outpatient (CLI) | payer OTHER, MEDICARE, SELFPAY ==
[2025-01-28 17:43] LABS: Mucous, Urine 0 SEEN /hpf (<or=2+)
[2025-01-28 18:23] LABS: Color, Urine Amber (Yellow); Glucose, Dipstick 250 mg/dl (Normal); Ketone-Dipstick Negative (Negative); Leukocyte Esterase-Dipstick 100 /ul (Negative); Nitrite-Dipstick Positive (Negative); Occult Blood-Urine 10 /ul (Negative); Protein-Dipstick 100 mg/dl (Negative); Urine Clarity Sl. Cloudy (Clear); Urine Urobilinogen 12 mg/dl (Normal); Urine pH 6.5 (5.0 - 8.0)
[2025-01-28 18:36] LABS: Urine Bilirubin Dipstick 6 mg/dL (Negative)
[2025-01-28 18:39] LABS: Red Blood Cells-Urine 0-5 SEEN /hpf (0-5); White Blood Cells 50-100 SEEN /hpf (0-5)
[2025-01-28 18:40] LABS: Bacteria 2+ /hpf (None Seen); Squamous Epithelial Cells - UA 0-5 SEEN /hpf (5-10); Transitional Epithelial - Ur 0-5 SEEN /hpf (0-5)
== END | disposition home or self-care (01) ==
LOC: LABSPEC 17:40
PROVIDERS: Physician Assistant; PCP Internal Medicine; Visit Provider Internal Medicine
DX: R30.0 Dysuria (principal)
CPT/HCPCS: 81001; 87086; 87088; 87186

== ENCOUNTER → 2025-02-11 | Outpatient (CLI) | payer OTHER, SELFPAY ==
--- NOTE | 2025-02-11 10:15 | MRI_ITS ---
PROCEDURE: BRAIN WITHOUT CONTRAST 02/11/2025 REASON FOR EXAM: MRI BRAIN W/O CONTRAST: MOTOR NEURON DISEASE SUSPECTED INTERMITTENT NUMBNESS OF THE RIGHT SIDE OF THE FACE. TECHNIQUE: Noncontrast brain MRI. Axial, coronal and sagittal FLAIR, T1 and T2 weighted images were obtained. Axial diffusion images with reconstructed ADC maps. Susceptibility weighted images were obtained. Gradient echo images were also obtained. COMPARISON: NONE. FINDINGS: Right parietal benign chronic meningeal calcification measuring 7 mm. A few scattered T2 hyperintense foci in the periventricular and subcortical white matter suggestive of minimal chronic ischemic white matter disease. The ventricles and extra-axial spaces are normal for the patient's age. No abnormality is identified in the basal ganglia and thalami. No abnormality is identified in the brainstem. Unremarkable cerebellum. There is no midline shift or brain herniation. There is no demonstrated extra-axial, intraparenchymal, or intraventricular hemorrhage. There are no abnormal intra-or extra-axial fluid collections. There are no areas of restricted diffusion to suggest acute ischemia. The cerebellopontine angles, internal auditory canals and the cisternal portions of the accoustico - facial nerves are unremarkable. Unremarkable exam of the skull. Normal soft tissue structures. Minimal chronic mucosal inflammatory changes of the right ethmoid air cells. Mild left mastoid effusion. The remaining visualized paranasal sinuses and right mastoid air cells are clear. The visualized portions of the orbits are unremarkable. MRI/Brain without Contrast IMPRESSION: 1. Minimal chronic ischemic white matter disease. 2. Right parietal benign chronic meningeal calcification measuring 7 mm. 3. Mild chronic mucosal inflammatory changes of the right ethmoid air cells. 4. Mild left mastoid effusion. Reading [facility] [id number]
== END | disposition home or self-care (01) ==
PROVIDERS: PCP Internal Medicine; Referring Provider Internal Medicine; Visit Provider Internal Medicine
DX: G51.0 Bell's palsy (principal)
CPT/HCPCS: 70551